=== PATIENT | female | born 1935 | race African-American/Black ===

== ENCOUNTER 2017-03-23 04:11 | Inpatient (IN) | payer OTHER, MEDICAID ==
[~2017-03-23] VITALS: Ht 165.1 cm; Wt 102.6 kg
[2017-03-23] MEDS ORDERED: LEVO25TA55 PO (04:59)
[2017-03-23] MEDS ORDERED: DONE10TA61 PO (04:59)
[2017-03-23] MEDS ORDERED: POLY119P4 PO (04:59)
[2017-03-23] MEDS ORDERED: LISI1TAB5 PO (04:59)
[2017-03-23] MEDS ORDERED: ASPI325T8 PO (04:59)
[2017-03-23] MEDS ORDERED: ACET325T9 PO (04:59)
[2017-03-23] MEDS ORDERED: INSU200I SQ (04:59)
[2017-03-23] MEDS ORDERED: METO50TA10 PO (04:59)
[2017-03-23] MEDS ORDERED: INSU100I27 SQ (04:59)
[2017-03-23] MEDS ORDERED: CIPR250T30 PO (04:59)
[2017-03-23] MEDS ORDERED: LEVO200T PO (04:59)
[2017-03-23] MEDS ORDERED: GABA-585 PO (04:59)
[2017-03-23] MEDS ORDERED: ATOR40TA PO (04:59)
[2017-03-23] MEDS ORDERED: DOCU-109 PO (04:59)
[2017-03-23 07:02] VITALS: BP 151/84
[2017-03-23] MEDS ORDERED: LEVOTHYROXINE 25 MCG TABLET. PO SCH (07:30)
[2017-03-23 08:08] LABS: BASO # 0.1 x10^3/uL (0.0-0.2); BASO % 1 % (0-3); EOS # 0.1 x10^3/uL (0.0-0.7); EOS % 2 % (0-3); HEMATOCRIT 33.1 % (36.0-47.0); HEMOGLOBIN 10.7 g/dL (12.0-15.5); LYMPH # 2.4 x10^3/uL (1.0-4.8); LYMPH % 28 % (24-48); MEAN CORPUSCULAR HEMOGLOBIN 31 pg (25-35); MEAN CORPUSCULAR HGB CONC 32 g/dL (31-37); MEAN CORPUSCULAR VOLUME 96 fL (79-100); MONO # 0.9 x10^3/uL (0.0-1.1); MONO % 10 % (0-9); NEUT # 5.1 x10^3uL (1.8-7.7); NEUT % 59 % (31-73); PLATELET COUNT 256 x10^3/uL (140-400); RED BLOOD COUNT 3.47 x10^6/uL (3.50-5.40); RED CELL DISTRIBUTION WIDTH 14.7 % (11.5-14.5); WHITE BLOOD COUNT 8.6 x10^3/uL (4.0-11.0)
[2017-03-23 08:09] LABS: ALBUMIN 2.8 g/dL (3.4-5.0); ALBUMIN/GLOBULIN RATIO 0.6 (1.0-1.7); CALCIUM 8.8 mg/dL (8.5-10.1); CREATININE 1.4 mg/dL (0.6-1.0); GFR 43.6; MAGNESIUM 1.8 mg/dL (1.8-2.4); TOTAL BILIRUBIN 0.2 mg/dL (0.2-1.0); TOTAL PROTEIN 7.7 g/dL (6.4-8.2)
[2017-03-23] MEDS: GABAPENTIN 100 MG CAPSULE. PO SCH ×2 (08:48→20:00)
[2017-03-23] MEDS: POLYETHYLENE GLYCOL 3350 17 GM PACKET. PO SCH (08:48)
[2017-03-23] MEDS: hydroCHLOROthiazide 12.5 MG CAPSULE PO SCH (08:48)
[2017-03-23] MEDS: LISINOPRIL 20 MG TABLET PO SCH (08:48)
[2017-03-23] MEDS: DOCUSATE SODIUM 100 MG CAPSULE PO SCH ×2 (08:49→20:00)
[2017-03-23] MEDS: METOPROLOL SUCC 24HR ER 50 MG TAB.ER.24H. PO SCH (08:49)
[2017-03-23] MEDS: ASPIRIN 325 MG TABLET PO SCH (08:52)
[2017-03-23] MEDS: CIPROFLOXACIN HCL 250 MG TABLET PO SCH ×2 (08:52→20:00)
[2017-03-23] MEDS: INSULIN DETEMIR 300 UNITS/3 ML INSULN.PEN. SQ SCH ×2 (08:53→20:06)
[2017-03-23] MEDS: LEVOTHYROXINE 100 MCG TABLET PO SCH (08:55)
[2017-03-23] MEDS ORDERED: ENOXAPARIN 30 MG/0.3 ML DISP.SYRIN. SQ SCH (09:00)
--- NOTE | 2017-03-23 10:11 | PDOC ---
Exam Claudio Demential Exam: Claudio Note: Please also refer to the separate dictated note~for this date of service dictated separately.~Patient seen individually. Discussed the patient with Nursing staff reviewed the chart.~Reviewed interim history and current functioning. Reviewed vital signs,~Labs/ Radiology~and current medications noted below. Continue current treatment with the changes noted in the dictated addendum note Assessment: Vital Signs: Vital Signs Date Time Temp Pulse Resp B/P (MAP) Pulse Ox O2 Delivery O2 Flow Rate FiO2 03/23/17 08:49 81 151/84 03/23/17 07:02 98.1 18 98 Labs: Laboratory Tests Test 03/23/17 07:12 03/23/17 07:18 03/23/17 07:41 White Blood Count 8.6 x10^3/uL (4.0-11.0) Red Blood Count 3.47 x10^6/uL (3.50-5.40) L Hemoglobin 10.7 g/dL (12.0-15.5) L Hematocrit 33.1 % (36.0-47.0) L Mean Corpuscular Volume 96 fL (79-100) Mean Corpuscular Hemoglobin 31 pg (25-35) Mean Corpuscular Hemoglobin Concent 32 g/dL (31-37) Red Cell Distribution Width 14.7 % (11.5-14.5) H Platelet Count 256 x10^3/uL (140-400) Neutrophils (%) (Auto) 59 % (31-73) Lymphocytes (%) (Auto) 28 % (24-48) Monocytes (%) (Auto) 10 % (0-9) H Eosinophils (%) (Auto) 2 % (0-3) Basophils (%) (Auto) 1 % (0-3) Neutrophils # (Auto) 5.1 x10^3uL (1.8-7.7) Lymphocytes # (Auto) 2.4 x10^3/uL (1.0-4.8) Monocytes # (Auto) 0.9 x10^3/uL (0.0-1.1) Eosinophils # (Auto) 0.1 x10^3/uL (0.0-0.7) Basophils # (Auto) 0.1 x10^3/uL (0.0-0.2) Sodium Level 139 mmol/L (136-145) Potassium Level 4.0 mmol/L (3.5-5.1) Chloride Level 104 mmol/L (98-107) Carbon Dioxide Level 30 mmol/L (21-32) Anion Gap 5 (6-14) L Blood Urea Nitrogen 26 mg/dL (7-20) H Creatinine 1.4 mg/dL (0.6-1.0) H Estimated GFR (Cockcroft-Gault) 43.6 BUN/Creatinine Ratio 19 (6-20) Glucose Level 157 mg/dL (70-99) H Calcium Level 8.8 mg/dL (8.5-10.1) Magnesium Level 1.8 mg/dL (1.8-2.4) Total Bilirubin 0.2 mg/dL (0.2-1.0) Aspartate Amino Transferase (AST) 29 U/L (15-37) Alanine Aminotransferase (ALT) 25 U/L (14-59) Alkaline Phosphatase 91 U/L (46-116) Total Protein 7.7 g/dL (6.4-8.2) Albumin 2.8 g/dL (3.4-5.0) L Albumin/Globulin Ratio 0.6 (1.0-1.7) L Prothrombin Time 11.3 SEC (9.4-11.4) Prothrombin Time INR 1.1 (0.9-1.1) Glucose (Fingerstick) 173 mg/dL (70-99) H Current Medications: Meds: Current Medications Donepezil HCl (Aricept) 10 mg QHS PO ; Start 03/23/17 at 21:00 Olanzapine (ZyPREXA ZYDIS) 2.5 mg PRN Q2HR PRN PO Psychosis; Start 03/23/17 at 06:30 Acetaminophen (Tylenol) 650 mg PRN Q6HRS PRN PO PAIN / TEMP; Start 03/23/17 at 07:00 Aspirin (Isabel Aspirin) 325 mg DAILY PO Last administered on 03/23/17 08:52; Start 03/23/17 at 09:00 Ciprofloxacin (Cipro) 250 mg BID PO Last administered on 03/23/17 08:52; Start 03/23/17 at 09:00; Stop 03/28/17 at 08:59 Docusate Sodium (Colace) 100 mg BID PO Last administered on 03/23/17 08:49; Start 03/23/17 at 09:00 Gabapentin (Neurontin) 100 mg BID PO Last administered on 03/23/17 08:48; Start 03/23/17 at 09:00 Insulin Detemir (Levemir) 30 units BID SQ Last administered on 03/23/17 08:53 ; Start 03/23/17 at 09:00 Levothyroxine Sodium (Synthroid) 25 mcg DAILY07 PO Last administered on 08:49; Start 03/23/17 at 07:30 Metoprolol Succinate (Toprol Xl) 50 mg DAILY PO Last administered on 03/23/17 08:49; Start 03/23/17 at 09:00 Polyethylene Glycol (miraLAX) 17 gm DAILY PO Last administered on 03/23/17 08: 48; Start 03/23/17 at 09:00 Atorvastatin Calcium (Lipitor) 40 mg QHS PO ; Start 03/23/17 at 21:00 Insulin Aspart (NovoLOG) 15 units TIDAC SQ ; Start 03/23/17 at 16:30 Levothyroxine Sodium (Synthroid) 200 mcg DAILY07 PO Last administered on 08:55; Start 03/23/17 at 09:00 Lisinopril (Prinivil) 20 mg DAILY PO Last administered on 03/23/17 08:48; Start 03/23/17 at 09:00 Enoxaparin Sodium (Lovenox) 30 mg Q24H SQ Last administered on 03/23/17 08:52 ; Start 03/23/17 at 09:00; Stop 03/23/17 at 09:31; Status DC Hydrochlorothiazide (Microzide) 12.5 mg DAILY PO Last administered on 08:48; Start 03/23/17 at 09:00 Enoxaparin Sodium (Lovenox) 40 mg Q24H SQ ; Start 03/24/17 at 09:00 Active Scripts Active Reported Tylenol (Acetaminophen) 325 Mg Tablet 650 Mg PO PRN Q6HRS PRN Metoprolol Succinate ( Xl ) (Metoprolol Succinate) 50 Mg Tab.er.24h 50 Mg PO DAILY Synthroid (Levothyroxine Sodium) 25 Mcg Tablet 25 Mcg PO DAILY07 Synthroid (Levothyroxine Sodium) 200 Mcg Tablet 200 Mcg PO DAILY07 Neurontin (Gabapentin) 100 Mg Capsule 100 Mg PO BID Miralax (Polyethylene Glycol 3350) 119 Gm Powder 17 Gm PO DAILY Lisinopril-Hctz 20-12.5 Mg Tab (Lisinopril/Hydrochlorothiazide) 1 Each Tablet 1 Tab PO DAILY Lipitor (Atorvastatin Calcium) 40 Mg Tablet 40 Mg PO DAILY Levemir Flextouch (Insulin Detemir) 100 Unit/1 Ml Insuln.pen 30 Unit SQ BID Humalog Kwikpen (Insulin Lispro) 200 Unit/1 Ml Insuln.pen 15 Unit SQ TIDAC Colace (Docusate Sodium) 100 Mg Capsule 100 Mg PO BID Cipro (Ciprofloxacin Hcl) 250 Mg Tablet 250 Mg PO BID 5 Days Aspirin 325 Mg Tablet 325 Mg PO DAILY Aricept (Donepezil Hcl) 10 Mg Tablet 10 Mg PO QHS Diagnosis: Problems: (1) Anxiety disorder (2) Impulse control disorder (3) Mild cognitive disorder (4) Major depressive disorder, recurrent episode (5) Bipolar 1 disorder, mixed, moderate KLAUDIA ESCAMILLA MD Mar 23, 2017 10:11
[2017-03-23 13:35] LABS: THYROID STIM HORMONE (TSH) 0.166 uIU/mL (0.358-3.740)
[2017-03-23 15:53] VITALS: BP 145/92
--- NOTE | 2017-03-23 16:24 | RAD ---
CT of the head without contrast, 03/23/2017: History: Altered mental status, multiple strokes. There are moderate patchy lucencies in the deep white matter bilaterally compatible with chronic ischemic change. There is moderate cerebral atrophy. The ventricles are mildly dilated on a compensatory basis. There is no shift of the midline structures. There is no evidence of acute intracranial hemorrhage or mass effect. There is a moderate sized calvarial defect in the right occipital region. This is most likely postsurgical. Correlation with the patient's surgical history is suggested. IMPRESSION: 1. Moderate chronic ischemic change in the deep white matter bilaterally. 2. Cerebral atrophy. 3. No acute intracranial abnormality is detected. PQRS Compliance Statement: One or more of the following individualized dose reduction techniques were utilized for this examination: 1. Automated exposure control 2. Adjustment of the mA and/or kV according to patient size 3. Use of iterative reconstruction technique
[2017-03-23] MEDS: INSULIN ASPART 300 UNITS/3 ML INSULN.PEN SQ SCH (17:19)
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
--- NOTE | 2017-03-23 19:48 | PDOC ---
Exam Claudio Demential Exam: Claudio Note: Please also refer to the separate dictated note~for this date of service dictated separately.~Patient seen individually. Discussed the patient with Nursing staff reviewed the chart.~Reviewed interim history and current functioning. Reviewed vital signs,~Labs/ Radiology~and current medications noted below. Continue current treatment with the changes noted in the dictated addendum note Assessment: Vital Signs: Vital Signs Date Time Temp Pulse Resp B/P (MAP) Pulse Ox O2 Delivery O2 Flow Rate FiO2 03/23/17 15:53 97.2 79 22 145/92 (109) 99 Labs: Laboratory Tests Test 03/23/17 07:12 03/23/17 07:18 03/23/17 07:41 03/23/17 13:01 White Blood Count 8.6 x10^3/uL (4.0-11.0) Red Blood Count 3.47 x10^6/uL (3.50-5.40) L Hemoglobin 10.7 g/dL (12.0-15.5) L Hematocrit 33.1 % (36.0-47.0) L Mean Corpuscular Volume 96 fL (79-100) Mean Corpuscular Hemoglobin 31 pg (25-35) Mean Corpuscular Hemoglobin Concent 32 g/dL (31-37) Red Cell Distribution Width 14.7 % (11.5-14.5) H Platelet Count 256 x10^3/uL (140-400) Neutrophils (%) (Auto) 59 % (31-73) Lymphocytes (%) (Auto) 28 % (24-48) Monocytes (%) (Auto) 10 % (0-9) H Eosinophils (%) (Auto) 2 % (0-3) Basophils (%) (Auto) 1 % (0-3) Neutrophils # (Auto) 5.1 x10^3uL (1.8-7.7) Lymphocytes # (Auto) 2.4 x10^3/uL (1.0-4.8) Monocytes # (Auto) 0.9 x10^3/uL (0.0-1.1) Eosinophils # (Auto) 0.1 x10^3/uL (0.0-0.7) Basophils # (Auto) 0.1 x10^3/uL (0.0-0.2) Sodium Level 139 mmol/L (136-145) Potassium Level 4.0 mmol/L (3.5-5.1) Chloride Level 104 mmol/L (98-107) Carbon Dioxide Level 30 mmol/L (21-32) Anion Gap 5 (6-14) L Blood Urea Nitrogen 26 mg/dL (7-20) H Creatinine 1.4 mg/dL (0.6-1.0) H Estimated GFR (Cockcroft-Gault) 43.6 BUN/Creatinine Ratio 19 (6-20) Glucose Level 157 mg/dL (70-99) H Calcium Level 8.8 mg/dL (8.5-10.1) Magnesium Level 1.8 mg/dL (1.8-2.4) Iron Level 58 ug/dL (50-170) Total Iron Binding Capacity 212 ug/dL (250-450) L Iron Saturation 27 % (15-34) Total Bilirubin 0.2 mg/dL (0.2-1.0) Aspartate Amino Transferase (AST) 29 U/L (15-37) Alanine Aminotransferase (ALT) 25 U/L (14-59) Alkaline Phosphatase 91 U/L (46-116) Total Protein 7.7 g/dL (6.4-8.2) Albumin 2.8 g/dL (3.4-5.0) L Albumin/Globulin Ratio 0.6 (1.0-1.7) L Triglycerides Level 57 mg/dL (0-150) Cholesterol Level 127 mg/dL (0-200) LDL Cholesterol, Calculated 68 mg/dL (0-100) VLDL Cholesterol, Calculated 11 mg/dL (0-40) Non-HDL Cholesterol Calculated 79 mg/dL (0-129) HDL Cholesterol 48 mg/dL (40-60) Cholesterol/HDL Ratio 2.0 Vitamin B12 Level 760 pg/mL (247-911) Thyroid Stimulating Hormone (TSH) 0.166 uIU/mL (0.358-3.740) Prothrombin Time 11.3 SEC (9.4-11.4) Prothrombin Time INR 1.1 (0.9-1.1) Glucose (Fingerstick) 173 mg/dL (70-99) H 243 mg/dL (70-99) H Test 03/23/17 16:47 03/23/17 19:05 Glucose (Fingerstick) 257 mg/dL (70-99) H 230 mg/dL (70-99) H Current Medications: Meds: Current Medications Donepezil HCl (Aricept) 10 mg QHS PO ; Start 03/23/17 at 21:00 Olanzapine (ZyPREXA ZYDIS) 2.5 mg PRN Q2HR PRN PO Psychosis; Start 03/23/17 at 06:30 Acetaminophen (Tylenol) 650 mg PRN Q6HRS PRN PO PAIN / TEMP; Start 03/23/17 at 07:00 Aspirin (Isabel Aspirin) 325 mg DAILY PO Last administered on 03/23/17 08:52; Start 03/23/17 at 09:00 Ciprofloxacin (Cipro) 250 mg BID PO Last administered on 03/23/17 08:52; Start 03/23/17 at 09:00; Stop 03/28/17 at 08:59 Docusate Sodium (Colace) 100 mg BID PO Last administered on 03/23/17 08:49; Start 03/23/17 at 09:00 Gabapentin (Neurontin) 100 mg BID PO Last administered on 03/23/17 08:48; Start 03/23/17 at 09:00 Insulin Detemir (Levemir) 30 units BID SQ Last administered on 03/23/17 08:53 ; Start 03/23/17 at 09:00 Levothyroxine Sodium (Synthroid) 25 mcg DAILY07 PO Last administered on 08:49; Start 03/23/17 at 07:30; Stop 03/23/17 at 16:43; Status DC Metoprolol Succinate (Toprol Xl) 50 mg DAILY PO Last administered on 03/23/17 08:49; Start 03/23/17 at 09:00 Polyethylene Glycol (miraLAX) 17 gm DAILY PO Last administered on 03/23/17 08: 48; Start 03/23/17 at 09:00 Atorvastatin Calcium (Lipitor) 40 mg QHS PO ; Start 03/23/17 at 21:00 Insulin Aspart (NovoLOG) 15 units TIDAC SQ Last administered on 03/23/17 17:19 ; Start 03/23/17 at 16:30 Levothyroxine Sodium (Synthroid) 200 mcg DAILY07 PO Last administered on 08:55; Start 03/23/17 at 09:00 Lisinopril (Prinivil) 20 mg DAILY PO Last administered on 03/23/17 08:48; Start 03/23/17 at 09:00 Enoxaparin Sodium (Lovenox) 30 mg Q24H SQ Last administered on 03/23/17 08:52 ; Start 03/23/17 at 09:00; Stop 03/23/17 at 09:31; Status DC Hydrochlorothiazide (Microzide) 12.5 mg DAILY PO Last administered on 08:48; Start 03/23/17 at 09:00 Enoxaparin Sodium (Lovenox) 40 mg Q24H SQ ; Start 03/24/17 at 09:00 Active Scripts Active Reported Tylenol (Acetaminophen) 325 Mg Tablet 650 Mg PO PRN Q6HRS PRN Metoprolol Succinate ( Xl ) (Metoprolol Succinate) 50 Mg Tab.er.24h 50 Mg PO DAILY Synthroid (Levothyroxine Sodium) 25 Mcg Tablet 25 Mcg PO DAILY07 Synthroid (Levothyroxine Sodium) 200 Mcg Tablet 200 Mcg PO DAILY07 Neurontin (Gabapentin) 100 Mg Capsule 100 Mg PO BID Miralax (Polyethylene Glycol 3350) 119 Gm Powder 17 Gm PO DAILY Lisinopril-Hctz 20-12.5 Mg Tab (Lisinopril/Hydrochlorothiazide) 1 Each Tablet 1 Tab PO DAILY Lipitor (Atorvastatin Calcium) 40 Mg Tablet 40 Mg PO DAILY Levemir Flextouch (Insulin Detemir) 100 Unit/1 Ml Insuln.pen 30 Unit SQ BID Humalog Kwikpen (Insulin Lispro) 200 Unit/1 Ml Insuln.pen 15 Unit SQ TIDAC Colace (Docusate Sodium) 100 Mg Capsule 100 Mg PO BID Cipro (Ciprofloxacin Hcl) 250 Mg Tablet 250 Mg PO BID 5 Days Aspirin 325 Mg Tablet 325 Mg PO DAILY Aricept (Donepezil Hcl) 10 Mg Tablet 10 Mg PO QHS Diagnosis: Problems: (1) Anxiety disorder (2) Impulse control disorder (3) Major depressive disorder, recurrent episode (4) Bipolar 1 disorder, mixed, moderate KLAUDIA ESCAMILLA MD Mar 23, 2017 19:48
[2017-03-23] MEDS: ATORVASTATIN CALCIUM 20 MG TABLET PO SCH (20:02)
[2017-03-23] MEDS: DONEPEZIL HCL 10 MG TABLET PO SCH (20:02)
[2017-03-23 20:07] LABS: T3 TOTAL 93 ng/dL (71-180); THYROXINE 9.6 ug/dL (4.5-12.0)
[2017-03-24 01:11] LABS: HEMOGLOBIN A1C 7.4 % (4.8-5.6)
[2017-03-24] MEDS: LEVOTHYROXINE 100 MCG TABLET PO SCH (05:57)
[2017-03-24 06:02] VITALS: BP 156/82
--- NOTE | 2017-03-24 06:37 | ACF ---
Admission Criteria Forms PSYCHIATRIC DISORDERS Clinical Indications for Inpatient Care (Place 'X' for any and all applicable criteria): Ongoing inpatient care may be needed for 1 or more of the following(1)(2)(3)(4)( 6)(7)(8): [ ]I. Danger to self or others not manageable at lower level of care. [ ]II. Grave disability (eg, inability to perform self care necessary at lower level of care) [ ]III. Agitation or inappropriate behavior interfering with care for primary condition (eg, attempting to discontinue lines or drains prematurely, unable to cooperate with respiratory care) [x]IV. Severe disability or disorder indicated by ALL of the following: [x]a) Severe behavioral health disorder-related symptoms or condition indicated by 1 or more of the following: [ ]i) Severe problem with cognition, memory, judgment, or impulse control [x]ii) Severe clinical manifestations (eg, hallucinations, delusions, other acute psychotic symptoms, gissell, extreme agitation or anxiety) [x]b) Patient management at lower level of care is not feasible until acute intervention or modification is initiated. Extended stay beyond goal length of stay for the primary condition may be needed untilALLof the following are present(1)(2)(3)(4)(722)(23): [ ]a) Danger to self or others is absent or manageable at lower level of care [ ]b) Behavior crisis management, including physical or chemical restraints, is required and is not available at a lower level of care. [ ]c) Behavioral symptoms (e.g., agitation, somnolence, inappropriate behavior) are present, and are not manageable at a lower level of care. [ ]d) Patient cannot understand follow-up treatment and crisis plan. [ ]e) Provider and supports are sufficiently available at lower level of care. [ ]f) Patient can participate (e.g., verify absence of plan for harm) and is in needed of monitoring. The original [facility] [employer] content created by [facility] [employer] has been revised. The portions of the content which have been revised are identified through the use of italic text, and [employer] has neither reviewed nor approved the modified material. All other unmodified content is copyright [facility] [employer] [employer]. Please see references footnoted in the original [facility] edition 2015 Admission Criteria Met?: Yes EDGARDO ROWE Mar 24, 2017 06:37
[2017-03-24] MEDS: GABAPENTIN 100 MG CAPSULE. PO SCH ×2 (08:31→19:25)
[2017-03-24] MEDS: ASPIRIN 325 MG TABLET PO SCH (08:31)
[2017-03-24] MEDS: METOPROLOL SUCC 24HR ER 50 MG TAB.ER.24H. PO SCH (08:31)
[2017-03-24] MEDS: hydroCHLOROthiazide 12.5 MG CAPSULE PO SCH (08:31)
[2017-03-24] MEDS: LISINOPRIL 20 MG TABLET PO SCH (08:31)
[2017-03-24] MEDS: CIPROFLOXACIN HCL 250 MG TABLET PO SCH ×2 (08:31→19:25)
[2017-03-24] MEDS: DOCUSATE SODIUM 100 MG CAPSULE PO SCH ×2 (08:31→19:25)
[2017-03-24] MEDS: POLYETHYLENE GLYCOL 3350 17 GM PACKET. PO SCH (08:32)
[2017-03-24] MEDS: ENOXAPARIN 40 MG/0.4 ML DISP.SYRIN. SQ SCH (08:33)
[2017-03-24] MEDS: INSULIN DETEMIR 300 UNITS/3 ML INSULN.PEN. SQ SCH ×2 (08:35→19:32)
[2017-03-24] MEDS: INSULIN ASPART 300 UNITS/3 ML INSULN.PEN SQ SCH ×3 (08:37→16:30)
[2017-03-24 15:35] VITALS: BP 118/92
[2017-03-24] MEDS ORDERED: DEXTROSE ORAL GEL 15 GM TUBE. ONE ×2 (16:35→16:55)
[2017-03-24] MEDS ORDERED: METHYL SALICYLATE/MENTHOL TOPICAL OINTMENT 29GM TUBE. TP PRN (18:30)
[2017-03-24] MEDS: DONEPEZIL HCL 10 MG TABLET PO SCH (19:25)
[2017-03-24] MEDS: ATORVASTATIN CALCIUM 20 MG TABLET PO SCH (19:26)
[2017-03-25] MEDS: LEVOTHYROXINE 100 MCG TABLET PO SCH (05:49)
[2017-03-25 06:33] VITALS: BP 134/85
[2017-03-25] MEDS: ASPIRIN 325 MG TABLET PO SCH (08:19)
[2017-03-25] MEDS: hydroCHLOROthiazide 12.5 MG CAPSULE PO SCH (08:19)
[2017-03-25] MEDS: DOCUSATE SODIUM 100 MG CAPSULE PO SCH ×2 (08:19→20:16)
[2017-03-25] MEDS: GABAPENTIN 100 MG CAPSULE. PO SCH ×2 (08:19→20:16)
[2017-03-25] MEDS: LISINOPRIL 20 MG TABLET PO SCH (08:20)
[2017-03-25] MEDS: POLYETHYLENE GLYCOL 3350 17 GM PACKET. PO SCH (08:20)
[2017-03-25] MEDS: METOPROLOL SUCC 24HR ER 50 MG TAB.ER.24H. PO SCH (08:20)
[2017-03-25] MEDS: CIPROFLOXACIN HCL 250 MG TABLET PO SCH ×2 (08:20→20:16)
[2017-03-25] MEDS: ENOXAPARIN 40 MG/0.4 ML DISP.SYRIN. SQ SCH (08:21)
[2017-03-25] MEDS: INSULIN ASPART 300 UNITS/3 ML INSULN.PEN SQ SCH ×3 (08:22→16:30)
[2017-03-25] MEDS: INSULIN DETEMIR 300 UNITS/3 ML INSULN.PEN. SQ SCH ×2 (08:22→20:20)
[2017-03-25 16:39] VITALS: BP 154/84
--- NOTE | 2017-03-25 19:40 | PDOC ---
Exam Claudio Demential Exam: Claudio Note: Please also refer to the separate dictated note~for this date of service dictated separately.~Patient seen individually. Discussed the patient with Nursing staff reviewed the chart.~Reviewed interim history and current functioning. Reviewed vital signs,~Labs/ Radiology~and current medications noted below. Continue current treatment with the changes noted in the dictated addendum note Assessment: Vital Signs: Vital Signs Date Time Temp Pulse Resp B/P (MAP) Pulse Ox O2 Delivery O2 Flow Rate FiO2 03/25/17 16:39 97.8 74 18 154/84 (107) 98 03/24/17 15:35 Room Air I&O Intake and Output 03/25/17 06:59 Intake Total 480 ml Balance 480 ml Intake Oral 480 ml # Bowel Movements 3 Labs: Laboratory Tests Test 03/25/17 02:31 03/25/17 07:14 03/25/17 11:25 03/25/17 17:05 Glucose (Fingerstick) 146 mg/dL (70-99) H 99 mg/dL (70-99) 217 mg/dL (70-99) H 78 mg/dL (70-99) Test 03/25/17 19:07 Glucose (Fingerstick) 166 mg/dL (70-99) H Current Medications: Meds: Current Medications Donepezil HCl (Aricept) 10 mg QHS PO Last administered on 03/24/17 19:25; Start 03/23/17 at 21:00 Olanzapine (ZyPREXA ZYDIS) 2.5 mg PRN Q2HR PRN PO Psychosis; Start 03/23/17 at 06:30 Acetaminophen (Tylenol) 650 mg PRN Q6HRS PRN PO PAIN / TEMP; Start 03/23/17 at 07:00 Aspirin (Isabel Aspirin) 325 mg DAILY PO Last administered on 03/25/17 08:19; Start 03/23/17 at 09:00 Ciprofloxacin (Cipro) 250 mg BID PO Last administered on 03/25/17 08:20; Start 03/23/17 at 09:00; Stop 03/28/17 at 08:59 Docusate Sodium (Colace) 100 mg BID PO Last administered on 03/25/17 08:19; Start 03/23/17 at 09:00 Gabapentin (Neurontin) 100 mg BID PO Last administered on 03/25/17 08:19; Start 03/23/17 at 09:00 Insulin Detemir (Levemir) 30 units BID SQ Last administered on 03/25/17 08:22 ; Start 03/23/17 at 09:00 Levothyroxine Sodium (Synthroid) 25 mcg DAILY07 PO Last administered on 08:49; Start 03/23/17 at 07:30; Stop 03/23/17 at 16:43; Status DC Metoprolol Succinate (Toprol Xl) 50 mg DAILY PO Last administered on 03/25/17 08:20; Start 03/23/17 at 09:00 Polyethylene Glycol (miraLAX) 17 gm DAILY PO Last administered on 03/25/17 08: 20; Start 03/23/17 at 09:00 Atorvastatin Calcium (Lipitor) 40 mg QHS PO Last administered on 03/24/17 19: 26; Start 03/23/17 at 21:00 Insulin Aspart (NovoLOG) 15 units TIDAC SQ Last administered on 03/25/17 11:43 ; Start 03/23/17 at 16:30 Levothyroxine Sodium (Synthroid) 200 mcg DAILY07 PO Last administered on 05:49; Start 03/23/17 at 09:00 Lisinopril (Prinivil) 20 mg DAILY PO Last administered on 03/25/17 08:20; Start 03/23/17 at 09:00 Enoxaparin Sodium (Lovenox) 30 mg Q24H SQ Last administered on 03/23/17 08:52 ; Start 03/23/17 at 09:00; Stop 03/23/17 at 09:31; Status DC Hydrochlorothiazide (Microzide) 12.5 mg DAILY PO Last administered on 08:19; Start 03/23/17 at 09:00 Enoxaparin Sodium (Lovenox) 40 mg Q24H SQ Last administered on 03/25/17 08:21 ; Start 03/24/17 at 09:00 Glucose (Insta-Glucose) 15 gm STK-MED ONCE .ROUTE Last administered on 16:35; Start 03/24/17 at 16:35; Stop 03/24/17 at 16:36; Status DC Glucose (Insta-Glucose) 15 gm STK-MED ONCE .ROUTE Last administered on t 16:59; Start 03/24/17 at 16:55; Stop 03/24/17 at 16:56; Status DC Multi-Ingredient Ointment (Analgesic [place]) 1 judith PRN QID PRN TP MUSCLE PAIN; Start 03/24/17 at 18:30 Active Scripts Active Reported Tylenol (Acetaminophen) 325 Mg Tablet 650 Mg PO PRN Q6HRS PRN Metoprolol Succinate ( Xl ) (Metoprolol Succinate) 50 Mg Tab.er.24h 50 Mg PO DAILY Synthroid (Levothyroxine Sodium) 25 Mcg Tablet 25 Mcg PO DAILY07 Synthroid (Levothyroxine Sodium) 200 Mcg Tablet 200 Mcg PO DAILY07 Neurontin (Gabapentin) 100 Mg Capsule 100 Mg PO BID Miralax (Polyethylene Glycol 3350) 119 Gm Powder 17 Gm PO DAILY Lisinopril-Hctz 20-12.5 Mg Tab (Lisinopril/Hydrochlorothiazide) 1 Each Tablet 1 Tab PO DAILY Lipitor (Atorvastatin Calcium) 40 Mg Tablet 40 Mg PO DAILY Levemir Flextouch (Insulin Detemir) 100 Unit/1 Ml Insuln.pen 30 Unit SQ BID Humalog Kwikpen (Insulin Lispro) 200 Unit/1 Ml Insuln.pen 15 Unit SQ TIDAC Colace (Docusate Sodium) 100 Mg Capsule 100 Mg PO BID Cipro (Ciprofloxacin Hcl) 250 Mg Tablet 250 Mg PO BID 5 Days Aspirin 325 Mg Tablet 325 Mg PO DAILY Aricept (Donepezil Hcl) 10 Mg Tablet 10 Mg PO QHS Diagnosis: Problems: (1) Anxiety disorder (2) Impulse control disorder (3) Major depressive disorder, recurrent episode (4) Bipolar 1 disorder, mixed, moderate KLAUDIA ESCAMILLA MD Mar 25, 2017 19:40
[2017-03-25] MEDS: DONEPEZIL HCL 10 MG TABLET PO SCH (20:16)
[2017-03-25] MEDS: ATORVASTATIN CALCIUM 20 MG TABLET PO SCH (20:16)
[2017-03-26] MEDS: LEVOTHYROXINE 100 MCG TABLET PO SCH (05:49)
[2017-03-26 05:58] VITALS: BP 128/55
[2017-03-26 08:26] VITALS: BP 150/77
[2017-03-26] MEDS: CIPROFLOXACIN HCL 250 MG TABLET PO SCH ×2 (08:27→20:09)
[2017-03-26] MEDS: METOPROLOL SUCC 24HR ER 50 MG TAB.ER.24H. PO SCH (08:28)
[2017-03-26] MEDS: hydroCHLOROthiazide 12.5 MG CAPSULE PO SCH (08:29)
[2017-03-26] MEDS: GABAPENTIN 100 MG CAPSULE. PO SCH ×2 (08:29→20:09)
[2017-03-26] MEDS: POLYETHYLENE GLYCOL 3350 17 GM PACKET. PO SCH (08:30)
[2017-03-26] MEDS: ASPIRIN 325 MG TABLET PO SCH (08:30)
[2017-03-26] MEDS: LISINOPRIL 20 MG TABLET PO SCH (08:30)
[2017-03-26] MEDS: DOCUSATE SODIUM 100 MG CAPSULE PO SCH ×2 (08:30→20:09)
[2017-03-26] MEDS: ENOXAPARIN 40 MG/0.4 ML DISP.SYRIN. SQ SCH (08:31)
[2017-03-26] MEDS: INSULIN ASPART 300 UNITS/3 ML INSULN.PEN SQ SCH ×3 (08:31→17:25)
[2017-03-26] MEDS: INSULIN DETEMIR 300 UNITS/3 ML INSULN.PEN. SQ SCH ×2 (08:32→20:11)
[2017-03-26] MEDS: ACETAMINOPHEN 325 MG TABLET PO PRN (12:08)
[2017-03-26 15:47] VITALS: BP 109/60
--- NOTE | 2017-03-26 19:49 | PDOC ---
Exam Claudio Demential Exam: Claudio Note: Please also refer to the separate dictated note~for this date of service dictated separately.~Patient seen individually. Discussed the patient with Nursing staff reviewed the chart.~Reviewed interim history and current functioning. Reviewed vital signs,~Labs/ Radiology~and current medications noted below. Continue current treatment with the changes noted in the dictated addendum note Assessment: Vital Signs: Vital Signs Date Time Temp Pulse Resp B/P (MAP) Pulse Ox O2 Delivery O2 Flow Rate FiO2 03/26/17 15:47 97.6 73 20 109/60 (76) 100 03/24/17 15:35 Room Air I&O Intake and Output 03/26/17 07:00 Intake Total 840 ml Balance 840 ml Intake Oral 840 ml # Voids 2 Labs: Laboratory Tests Test 03/26/17 07:15 03/26/17 12:00 03/26/17 16:45 Glucose (Fingerstick) 164 mg/dL (70-99) H 146 mg/dL (70-99) H 94 mg/dL (70-99) Current Medications: Meds: Current Medications Donepezil HCl (Aricept) 10 mg QHS PO Last administered on 03/25/17 20:16; Start 03/23/17 at 21:00 Olanzapine (ZyPREXA ZYDIS) 2.5 mg PRN Q2HR PRN PO Psychosis Last administered on 03/26/17 15:09; Start 03/23/17 at 06:30 Acetaminophen (Tylenol) 650 mg PRN Q6HRS PRN PO PAIN / TEMP Last administered on 03/26/17 12:08; Start 03/23/17 at 07:00 Aspirin (Isabel Aspirin) 325 mg DAILY PO Last administered on 03/26/17 08:30; Start 03/23/17 at 09:00 Ciprofloxacin (Cipro) 250 mg BID PO Last administered on 03/26/17 08:27; Start 03/23/17 at 09:00; Stop 03/28/17 at 08:59 Docusate Sodium (Colace) 100 mg BID PO Last administered on 03/26/17 08:30; Start 03/23/17 at 09:00 Gabapentin (Neurontin) 100 mg BID PO Last administered on 03/26/17 08:29; Start 03/23/17 at 09:00 Insulin Detemir (Levemir) 30 units BID SQ Last administered on 03/26/17 08:32 ; Start 03/23/17 at 09:00 Levothyroxine Sodium (Synthroid) 25 mcg DAILY07 PO Last administered on 08:49; Start 03/23/17 at 07:30; Stop 03/23/17 at 16:43; Status DC Metoprolol Succinate (Toprol Xl) 50 mg DAILY PO Last administered on 03/26/17 08:28; Start 03/23/17 at 09:00 Polyethylene Glycol (miraLAX) 17 gm DAILY PO Last administered on 03/26/17 08: 30; Start 03/23/17 at 09:00 Atorvastatin Calcium (Lipitor) 40 mg QHS PO Last administered on 03/25/17 20: 16; Start 03/23/17 at 21:00 Insulin Aspart (NovoLOG) 15 units TIDAC SQ Last administered on 03/26/17 12:09 ; Start 03/23/17 at 16:30; Stop 03/26/17 at 14:22; Status DC Levothyroxine Sodium (Synthroid) 200 mcg DAILY07 PO Last administered on 05:49; Start 03/23/17 at 09:00 Lisinopril (Prinivil) 20 mg DAILY PO Last administered on 03/26/17 08:30; Start 03/23/17 at 09:00 Enoxaparin Sodium (Lovenox) 30 mg Q24H SQ Last administered on 03/23/17 08:52 ; Start 03/23/17 at 09:00; Stop 03/23/17 at 09:31; Status DC Hydrochlorothiazide (Microzide) 12.5 mg DAILY PO Last administered on 08:29; Start 03/23/17 at 09:00 Enoxaparin Sodium (Lovenox) 40 mg Q24H SQ Last administered on 03/26/17 08:31 ; Start 03/24/17 at 09:00 Glucose (Insta-Glucose) 15 gm STK-MED ONCE .ROUTE Last administered on 16:35; Start 03/24/17 at 16:35; Stop 03/24/17 at 16:36; Status DC Glucose (Insta-Glucose) 15 gm STK-MED ONCE .ROUTE Last administered on 16:59; Start 03/24/17 at 16:55; Stop 03/24/17 at 16:56; Status DC Multi-Ingredient Ointment (Analgesic [place]) 1 judith PRN QID PRN TP MUSCLE PAIN; Start 03/24/17 at 18:30 Insulin Aspart (NovoLOG) 15 units TIDAC SQ Last administered on 03/26/17 17:25 ; Start 03/26/17 at 14:22 Buspirone HCl (Buspar) 5 mg BID92 PO ; Start 03/27/17 at 09:00 Active Scripts Active Reported Tylenol (Acetaminophen) 325 Mg Tablet 650 Mg PO PRN Q6HRS PRN Metoprolol Succinate ( Xl ) (Metoprolol Succinate) 50 Mg Tab.er.24h 50 Mg PO DAILY Synthroid (Levothyroxine Sodium) 25 Mcg Tablet 25 Mcg PO DAILY07 Synthroid (Levothyroxine Sodium) 200 Mcg Tablet 200 Mcg PO DAILY07 Neurontin (Gabapentin) 100 Mg Capsule 100 Mg PO BID Miralax (Polyethylene Glycol 3350) 119 Gm Powder 17 Gm PO DAILY Lisinopril-Hctz 20-12.5 Mg Tab (Lisinopril/Hydrochlorothiazide) 1 Each Tablet 1 Tab PO DAILY Lipitor (Atorvastatin Calcium) 40 Mg Tablet 40 Mg PO DAILY Levemir Flextouch (Insulin Detemir) 100 Unit/1 Ml Insuln.pen 30 Unit SQ BID Humalog Kwikpen (Insulin Lispro) 200 Unit/1 Ml Insuln.pen 15 Unit SQ TIDAC Colace (Docusate Sodium) 100 Mg Capsule 100 Mg PO BID Cipro (Ciprofloxacin Hcl) 250 Mg Tablet 250 Mg PO BID 5 Days Aspirin 325 Mg Tablet 325 Mg PO DAILY Aricept (Donepezil Hcl) 10 Mg Tablet 10 Mg PO QHS Diagnosis: Problems: (1) Anxiety disorder (2) Impulse control disorder (3) Major depressive disorder, recurrent episode (4) Bipolar 1 disorder, mixed, moderate KLAUDIA ESCAMILLA MD Mar 26, 2017 19:48
[2017-03-26] MEDS: DONEPEZIL HCL 10 MG TABLET PO SCH (20:09)
[2017-03-26] MEDS: ATORVASTATIN CALCIUM 20 MG TABLET PO SCH (20:10)
[2017-03-27] MEDS: LEVOTHYROXINE 100 MCG TABLET PO SCH (03:08)
[2017-03-27 07:00] VITALS: BP 129/58
[2017-03-27] MEDS: INSULIN ASPART 300 UNITS/3 ML INSULN.PEN SQ SCH ×3 (07:30→18:13)
--- NOTE | 2017-03-27 08:28 | PN ---
DATE: 03/25/2017 This is a late entry, covers the elements not covered in my initial note of 03/25/2017. I met with the patient evening of 03/25/2017. SUBJECTIVE: The patient has been withdrawn, somewhat drowsy in the day room before bedtime, otherwise calm, compliant, and increased activity during the evening visiting hours. REVIEW OF SYSTEMS: No CV, , pulmonary, eye system symptoms on review. Gait unsteady in wheelchair. MENTAL STATUS EXAM: Oriented to herself and situation. Speech has some latency, coherent. Abstraction fair, computation impaired, language function intact, attention span short, mood and affect somewhat withdrawn. LABORATORY DATA: Reviewed. IMPRESSION: Unchanged from initial note. PLAN: Continue current psychotropics. Reviewed drug interactions, risk/benefit ratio favors no further change. MAN Azar ESCAMILLA MD DR: BILLY/kal JOB#: [id number] / [id number]
[2017-03-27] MEDS: hydroCHLOROthiazide 12.5 MG CAPSULE PO SCH (09:21)
[2017-03-27] MEDS: POLYETHYLENE GLYCOL 3350 17 GM PACKET. PO SCH (09:22)
[2017-03-27] MEDS: METOPROLOL SUCC 24HR ER 50 MG TAB.ER.24H. PO SCH (09:22)
[2017-03-27] MEDS: CIPROFLOXACIN HCL 250 MG TABLET PO SCH ×2 (09:22→20:02)
[2017-03-27] MEDS: ASPIRIN 325 MG TABLET PO SCH (09:22)
[2017-03-27] MEDS: LISINOPRIL 20 MG TABLET PO SCH (09:22)
[2017-03-27] MEDS: DOCUSATE SODIUM 100 MG CAPSULE PO SCH ×2 (09:22→20:02)
[2017-03-27] MEDS: GABAPENTIN 100 MG CAPSULE. PO SCH ×2 (09:26→20:02)
[2017-03-27] MEDS: busPIRone 5 MG TABLET. PO SCH ×2 (09:26→13:03)
[2017-03-27] MEDS: ENOXAPARIN 40 MG/0.4 ML DISP.SYRIN. SQ SCH (09:26)
[2017-03-27] MEDS: INSULIN DETEMIR 300 UNITS/3 ML INSULN.PEN. SQ SCH ×2 (09:30→20:16)
[2017-03-27 10:20] LABS: BILIRUBIN,URINE NEG (NEG); CLARITY,URINE TURBID; COLOR,URINE STRAW; GLUCOSE,URINE NEG (NEG); NITRITE,URINE POS (NEG); UROBILINOGEN,URINE 0.2 mg/dL (0.2 mg/dL)
[2017-03-27 10:21] LABS: BACTERIA,URINE MANY /HPF (0-FEW); SQUAMOUS EPITHELIAL CELL,UR MOD /LPF; WBC,URINE >40 /HPF (0-4)
[2017-03-27] MEDS: ACETAMINOPHEN 325 MG TABLET PO PRN (13:03)
[2017-03-27 15:51] VITALS: BP 125/73
--- NOTE | 2017-03-27 19:48 | PDOC ---
Exam Claudio Demential Exam: Claudio Note: Please also refer to the separate dictated note~for this date of service dictated separately.~Patient seen individually. Discussed the patient with Nursing staff reviewed the chart.~Reviewed interim history and current functioning. Reviewed vital signs,~Labs/ Radiology~and current medications noted below. Continue current treatment with the changes noted in the dictated addendum note Assessment: Vital Signs: Vital Signs Date Time Temp Pulse Resp B/P (MAP) Pulse Ox O2 Delivery O2 Flow Rate FiO2 03/27/17 15:51 97.0 79 20 125/73 (90) 100 03/24/17 15:35 Room Air I&O Intake and Output 03/28/17 07:00 Intake Total 840 ml Balance 840 ml Intake Oral 840 ml Labs: Laboratory Tests Test 03/27/17 07:49 03/27/17 10:00 03/27/17 11:20 03/27/17 16:23 Glucose (Fingerstick) 60 mg/dL (70-99) L 132 mg/dL (70-99) H 219 mg/dL (70-99) H Urine Collection Type Unknown Urine Color Straw Urine Clarity Turbid Urine pH 6.0 Urine Specific [place] 1.015 Urine Protein Neg (NEG-TRACE) Urine Glucose (UA) Neg mg/dL (NEG) Urine Ketones (Stick) Neg mg/dL (NEG) Urine Blood Trace (NEG) Urine Nitrite Pos (NEG) Urine Bilirubin Neg (NEG) Urine Urobilinogen Dipstick 0.2 mg/dL (0.2 mg/dL) Urine Leukocyte Esterase Large (NEG) Urine RBC 3-5 /HPF (0-2) Urine WBC >40 /HPF (0-4) Urine Squamous Epithelial Cells Mod /LPF Urine Bacteria Many /HPF (0-FEW) Test 03/27/17 19:15 Glucose (Fingerstick) 178 mg/dL (70-99) H Current Medications: Meds: Current Medications Donepezil HCl (Aricept) 10 mg QHS PO Last administered on 03/26/17 20:09; Start 03/23/17 at 21:00 Olanzapine (ZyPREXA ZYDIS) 2.5 mg PRN Q2HR PRN PO Psychosis Last administered on 03/26/17 15:09; Start 03/23/17 at 06:30 Acetaminophen (Tylenol) 650 mg PRN Q6HRS PRN PO PAIN / TEMP Last administered on 03/27/17 13:03; Start 03/23/17 at 07:00 Aspirin (Isabel Aspirin) 325 mg DAILY PO Last administered on 03/27/17 09:22; Start 03/23/17 at 09:00 Ciprofloxacin (Cipro) 250 mg BID PO Last administered on 03/27/17 09:22; Start 03/23/17 at 09:00; Stop 03/28/17 at 08:59 Docusate Sodium (Colace) 100 mg BID PO Last administered on 03/27/17 09:22; Start 03/23/17 at 09:00 Gabapentin (Neurontin) 100 mg BID PO Last administered on 03/27/17 09:26; Start 03/23/17 at 09:00 Insulin Detemir (Levemir) 30 units BID SQ Last administered on 03/27/17 09:30 ; Start 03/23/17 at 09:00 Levothyroxine Sodium (Synthroid) 25 mcg DAILY07 PO Last administered on 08:49; Start 03/23/17 at 07:30; Stop 03/23/17 at 16:43; Status DC Metoprolol Succinate (Toprol Xl) 50 mg DAILY PO Last administered on 03/27/17 09:22; Start 03/23/17 at 09:00 Polyethylene Glycol (miraLAX) 17 gm DAILY PO Last administered on 03/27/17 09: 22; Start 03/23/17 at 09:00 Atorvastatin Calcium (Lipitor) 40 mg QHS PO Last administered on 03/26/17 20: 10; Start 03/23/17 at 21:00 Insulin Aspart (NovoLOG) 15 units TIDAC SQ Last administered on 03/26/17 12:09 ; Start 03/23/17 at 16:30; Stop 03/26/17 at 14:22; Status DC Levothyroxine Sodium (Synthroid) 200 mcg DAILY07 PO Last administered on 03:08; Start 03/23/17 at 09:00 Lisinopril (Prinivil) 20 mg DAILY PO Last administered on 03/27/17 09:22; Start 03/23/17 at 09:00 Enoxaparin Sodium (Lovenox) 30 mg Q24H SQ Last administered on 03/23/17 08:52 ; Start 03/23/17 at 09:00; Stop 03/23/17 at 09:31; Status DC Hydrochlorothiazide (Microzide) 12.5 mg DAILY PO Last administered on 09:21; Start 03/23/17 at 09:00 Enoxaparin Sodium (Lovenox) 40 mg Q24H SQ Last administered on 03/27/17 09:26 ; Start 03/24/17 at 09:00 Glucose (Insta-Glucose) 15 gm STK-MED ONCE .ROUTE Last administered on 16:35; Start 03/24/17 at 16:35; Stop 03/24/17 at 16:36; Status DC Glucose (Insta-Glucose) 15 gm STK-MED ONCE .ROUTE Last administered on 16:59; Start 03/24/17 at 16:55; Stop 03/24/17 at 16:56; Status DC Multi-Ingredient Ointment (Analgesic [place]) 1 judith PRN QID PRN TP MUSCLE PAIN; Start 03/24/17 at 18:30 Insulin Aspart (NovoLOG) 15 units TIDAC SQ Last administered on 03/27/17 18:13 ; Start 03/26/17 at 14:22 Buspirone HCl (Buspar) 5 mg BID92 PO Last administered on 03/27/17 13:03; Start 03/27/17 at 09:00 Active Scripts Active Reported Tylenol (Acetaminophen) 325 Mg Tablet 650 Mg PO PRN Q6HRS PRN Metoprolol Succinate ( Xl ) (Metoprolol Succinate) 50 Mg Tab.er.24h 50 Mg PO DAILY Synthroid (Levothyroxine Sodium) 25 Mcg Tablet 25 Mcg PO DAILY07 Synthroid (Levothyroxine Sodium) 200 Mcg Tablet 200 Mcg PO DAILY07 Neurontin (Gabapentin) 100 Mg Capsule 100 Mg PO BID Miralax (Polyethylene Glycol 3350) 119 Gm Powder 17 Gm PO DAILY Lisinopril-Hctz 20-12.5 Mg Tab (Lisinopril/Hydrochlorothiazide) 1 Each Tablet 1 Tab PO DAILY Lipitor (Atorvastatin Calcium) 40 Mg Tablet 40 Mg PO DAILY Levemir Flextouch (Insulin Detemir) 100 Unit/1 Ml Insuln.pen 30 Unit SQ BID Humalog Kwikpen (Insulin Lispro) 200 Unit/1 Ml Insuln.pen 15 Unit SQ TIDAC Colace (Docusate Sodium) 100 Mg Capsule 100 Mg PO BID Cipro (Ciprofloxacin Hcl) 250 Mg Tablet 250 Mg PO BID 5 Days Aspirin 325 Mg Tablet 325 Mg PO DAILY Aricept (Donepezil Hcl) 10 Mg Tablet 10 Mg PO QHS Diagnosis: Problems: (1) Anxiety disorder (2) Impulse control disorder (3) Major depressive disorder, recurrent episode (4) Bipolar 1 disorder, mixed, moderate KLAUDIA ESCAMILLA MD Mar 27, 2017 19:48
[2017-03-27] MEDS: DONEPEZIL HCL 10 MG TABLET PO SCH (20:02)
[2017-03-27] MEDS: ATORVASTATIN CALCIUM 20 MG TABLET PO SCH (20:02)
--- NOTE | 2017-03-28 01:50 | PN ---
DATE: 03/26/2017 PSYCHIATRIC PROGRESS NOTE This is a late entry of 03/26/2017 covers elements not covered in my initial note. SUBJECTIVE: I met with the patient in the evening of 03/26/2017. Staff are trying to check her UA, but she is incontinent in a brief which makes it hard has been started on clindamycin somewhat dramatic previous evening, she was yelling that her leg was broken, remains anxious. REVIEW OF SYSTEMS: Ambulation impaired in wheelchair. No CV, , pulmonary, eye system symptoms on review. MENTAL STATUS EXAM: Oriented to herself and situation. Speech coherent, somewhat sedated as I met with her the evening of 03/26/2017, but that was after her p.r.n. Zyprexa. Abstraction fair, computation impaired, language function intact. No sexually inappropriate behaviors noted. Mood and affect, lability improved. LABORATORY DATA: Reviewed. IMPRESSION: Unchanged from initial note. PLAN: Continue current psychotropics. Add BuSpar 5 mg twice a day. Adjust further as clinically indicated. MAN Azar ESCAMILLA MD DR: BILLY/kal JOB#: [id number] / [id number]
[2017-03-28 05:55] VITALS: BP 137/77
[2017-03-28] MEDS: INSULIN ASPART 300 UNITS/3 ML INSULN.PEN SQ SCH ×3 (07:30→17:19)
[2017-03-28] MEDS: busPIRone 5 MG TABLET. PO SCH ×4 (09:32→19:40)
[2017-03-28] MEDS: hydroCHLOROthiazide 12.5 MG CAPSULE PO SCH (09:32)
[2017-03-28] MEDS: ASPIRIN 325 MG TABLET PO SCH (09:32)
[2017-03-28] MEDS: METOPROLOL SUCC 24HR ER 50 MG TAB.ER.24H. PO SCH (09:32)
[2017-03-28] MEDS: DOCUSATE SODIUM 100 MG CAPSULE PO SCH ×2 (09:32→19:40)
[2017-03-28] MEDS: GABAPENTIN 100 MG CAPSULE. PO SCH ×2 (09:33→19:40)
[2017-03-28] MEDS: LISINOPRIL 20 MG TABLET PO SCH (09:33)
[2017-03-28] MEDS: POLYETHYLENE GLYCOL 3350 17 GM PACKET. PO SCH (09:38)
[2017-03-28] MEDS: ENOXAPARIN 40 MG/0.4 ML DISP.SYRIN. SQ SCH (09:38)
[2017-03-28] MEDS: LEVOTHYROXINE 100 MCG TABLET PO SCH (09:38)
[2017-03-28] MEDS: INSULIN DETEMIR 300 UNITS/3 ML INSULN.PEN. SQ SCH ×2 (09:46→19:42)
[2017-03-28] MEDS: ACETAMINOPHEN 325 MG TABLET PO PRN (11:48)
[2017-03-28 16:14] VITALS: BP 138/73
[2017-03-28] MEDS: DONEPEZIL HCL 10 MG TABLET PO SCH (19:40)
[2017-03-28] MEDS: ATORVASTATIN CALCIUM 20 MG TABLET PO SCH (19:40)
--- NOTE | 2017-03-28 19:56 | PDOC ---
Exam Claudio Demential Exam: Claudio Note: Please also refer to the separate dictated note~for this date of service dictated separately.~Patient seen individually. Discussed the patient with Nursing staff reviewed the chart.~Reviewed interim history and current functioning. Reviewed vital signs,~Labs/ Radiology~and current medications noted below. Continue current treatment with the changes noted in the dictated addendum note Assessment: Vital Signs: Vital Signs Date Time Temp Pulse Resp B/P (MAP) Pulse Ox O2 Delivery O2 Flow Rate FiO2 03/28/17 16:14 97.2 76 16 138/73 (94) 95 03/24/17 15:35 Room Air I&O Intake and Output 03/29/17 07:00 Intake Total 960 ml Balance 960 ml Intake Oral 960 ml Labs: Laboratory Tests Test 03/28/17 07:22 03/28/17 11:40 03/28/17 17:16 03/28/17 19:08 Glucose (Fingerstick) 72 mg/dL (70-99) 165 mg/dL (70-99) H 161 mg/dL (70-99) H 210 mg/dL (70-99) H Current Medications: Meds: Current Medications Donepezil HCl (Aricept) 10 mg QHS PO Last administered on 03/28/17 19:40; Start 03/23/17 at 21:00 Olanzapine (ZyPREXA ZYDIS) 2.5 mg PRN Q2HR PRN PO Psychosis Last administered on 03/26/17 15:09; Start 03/23/17 at 06:30 Acetaminophen (Tylenol) 650 mg PRN Q6HRS PRN PO PAIN / TEMP Last administered on 03/28/17 11:48; Start 03/23/17 at 07:00 Aspirin (Isabel Aspirin) 325 mg DAILY PO Last administered on 03/28/17 09:32; Start 03/23/17 at 09:00 Ciprofloxacin (Cipro) 250 mg BID PO Last administered on 03/27/17 20:02; Start 03/23/17 at 09:00; Stop 03/28/17 at 08:59; Status DC Docusate Sodium (Colace) 100 mg BID PO Last administered on 03/28/17 19:40; Start 03/23/17 at 09:00 Gabapentin (Neurontin) 100 mg BID PO Last administered on 03/28/17 19:40; Start 03/23/17 at 09:00 Insulin Detemir (Levemir) 30 units BID SQ Last administered on 03/28/17 19:42 ; Start 03/23/17 at 09:00 Levothyroxine Sodium (Synthroid) 25 mcg DAILY07 PO Last administered on 08:49; Start 03/23/17 at 07:30; Stop 03/23/17 at 16:43; Status DC Metoprolol Succinate (Toprol Xl) 50 mg DAILY PO Last administered on 03/28/17 09:32; Start 03/23/17 at 09:00 Polyethylene Glycol (miraLAX) 17 gm DAILY PO Last administered on 03/28/17 09: 38; Start 03/23/17 at 09:00 Atorvastatin Calcium (Lipitor) 40 mg QHS PO Last administered on 03/28/17 19: 40; Start 03/23/17 at 21:00 Insulin Aspart (NovoLOG) 15 units TIDAC SQ Last administered on 03/26/17 12:09 ; Start 03/23/17 at 16:30; Stop 03/26/17 at 14:22; Status DC Levothyroxine Sodium (Synthroid) 200 mcg DAILY07 PO Last administered on 09:38; Start 03/23/17 at 09:00 Lisinopril (Prinivil) 20 mg DAILY PO Last administered on 03/28/17 09:33; Start 03/23/17 at 09:00 Enoxaparin Sodium (Lovenox) 30 mg Q24H SQ Last administered on 03/23/17 08:52 ; Start 03/23/17 at 09:00; Stop 03/23/17 at 09:31; Status DC Hydrochlorothiazide (Microzide) 12.5 mg DAILY PO Last administered on 09:32; Start 03/23/17 at 09:00 Enoxaparin Sodium (Lovenox) 40 mg Q24H SQ Last administered on 03/28/17 09:38 ; Start 03/24/17 at 09:00 Glucose (Insta-Glucose) 15 gm STK-MED ONCE .ROUTE Last administered on 16:35; Start 03/24/17 at 16:35; Stop 03/24/17 at 16:36; Status DC Glucose (Insta-Glucose) 15 gm STK-MED ONCE .ROUTE Last administered on 16:59; Start 03/24/17 at 16:55; Stop 03/24/17 at 16:56; Status DC Multi-Ingredient Ointment (Analgesic [place]) 1 judith PRN QID PRN TP MUSCLE PAIN; Start 03/24/17 at 18:30 Insulin Aspart (NovoLOG) 15 units TIDAC SQ Last administered on 03/28/17 17:19 ; Start 03/26/17 at 14:22 Buspirone HCl (Buspar) 5 mg BID92 PO Last administered on 03/28/17 09:32; Start 03/27/17 at 09:00; Stop 03/28/17 at 13:11; Status DC Buspirone HCl (Buspar) 5 mg TID PO Last administered on 03/28/17 19:40; Start 03/28/17 at 14:00 Sertraline HCl (Zoloft) 25 mg DAILY PO ; Start 03/29/17 at 09:00 Active Scripts Active Reported Tylenol (Acetaminophen) 325 Mg Tablet 650 Mg PO PRN Q6HRS PRN Metoprolol Succinate ( Xl ) (Metoprolol Succinate) 50 Mg Tab.er.24h 50 Mg PO DAILY Synthroid (Levothyroxine Sodium) 25 Mcg Tablet 25 Mcg PO DAILY07 Synthroid (Levothyroxine Sodium) 200 Mcg Tablet 200 Mcg PO DAILY07 Neurontin (Gabapentin) 100 Mg Capsule 100 Mg PO BID Miralax (Polyethylene Glycol 3350) 119 Gm Powder 17 Gm PO DAILY Lisinopril-Hctz 20-12.5 Mg Tab (Lisinopril/Hydrochlorothiazide) 1 Each Tablet 1 Tab PO DAILY Lipitor (Atorvastatin Calcium) 40 Mg Tablet 40 Mg PO DAILY Levemir Flextouch (Insulin Detemir) 100 Unit/1 Ml Insuln.pen 30 Unit SQ BID Humalog Kwikpen (Insulin Lispro) 200 Unit/1 Ml Insuln.pen 15 Unit SQ TIDAC Colace (Docusate Sodium) 100 Mg Capsule 100 Mg PO BID Cipro (Ciprofloxacin Hcl) 250 Mg Tablet 250 Mg PO BID 5 Days Aspirin 325 Mg Tablet 325 Mg PO DAILY Aricept (Donepezil Hcl) 10 Mg Tablet 10 Mg PO QHS Diagnosis: Problems: (1) Anxiety disorder (2) Impulse control disorder (3) Major depressive disorder, recurrent episode (4) Bipolar 1 disorder, mixed, moderate KLAUDIA ESCAMILLA MD Mar 28, 2017 19:56
--- NOTE | 2017-03-29 00:39 | PN ---
DATE: 03/27/2017 This late entry 03/27/2017 covers elements not covered in my initial note on 03/27/2017. SUBJECTIVE: I met with the patient the evening of 03/27/2017. Discussed with social service staff earlier in the day on 03/27/2017 as well. The patient is compliant with her medications, pleasant, complains of leg pain. REVIEW OF SYSTEMS: Ambulation impaired, in a wheelchair. No CV, , pulmonary, eye system symptoms on review. MENTAL STATUS EXAM: Oriented to herself and situation. Speech is coherent, abstraction fair, computation impaired, language function intact, attention span short. Mood and affect, lability is improved. LABS: UA has been checked again with the possibility of UTI. PLAN: Continue Aricept 10 mg a day, BuSpar 5 mg b.i.d. will be increased to t.i.d. Check UA Continue Zyprexa p.r.n. Add Zoloft 25 mg a day. Reviewed drug interactions, risk/benefit ratio favors no further changes as of now. MAN Azar ESCAMILLA MD DR: BILLY/kal JOB#: [id number] / [id number]
[2017-03-29 06:09] VITALS: BP 132/71
[2017-03-29] MEDS: LEVOTHYROXINE 100 MCG TABLET PO SCH (06:13)
[2017-03-29] MEDS: INSULIN ASPART 300 UNITS/3 ML INSULN.PEN SQ SCH ×3 (07:30→18:15)
[2017-03-29] MEDS: DOCUSATE SODIUM 100 MG CAPSULE PO SCH ×2 (09:47→19:50)
[2017-03-29] MEDS: hydroCHLOROthiazide 12.5 MG CAPSULE PO SCH (09:47)
[2017-03-29] MEDS: GABAPENTIN 100 MG CAPSULE. PO SCH ×2 (09:47→19:50)
[2017-03-29] MEDS: busPIRone 5 MG TABLET. PO SCH ×3 (09:47→19:50)
[2017-03-29] MEDS: LISINOPRIL 20 MG TABLET PO SCH (09:47)
[2017-03-29] MEDS: ASPIRIN 325 MG TABLET PO SCH (09:48)
[2017-03-29] MEDS: METOPROLOL SUCC 24HR ER 50 MG TAB.ER.24H. PO SCH (09:48)
[2017-03-29] MEDS: ENOXAPARIN 40 MG/0.4 ML DISP.SYRIN. SQ SCH (09:48)
[2017-03-29] MEDS: POLYETHYLENE GLYCOL 3350 17 GM PACKET. PO SCH (09:48)
[2017-03-29] MEDS: SERTRALINE 25 MG TABLET. PO SCH (09:49)
[2017-03-29] MEDS: INSULIN DETEMIR 300 UNITS/3 ML INSULN.PEN. SQ SCH ×2 (09:50→19:51)
[2017-03-29 16:14] VITALS: BP 159/79
[2017-03-29] MEDS: DONEPEZIL HCL 10 MG TABLET PO SCH (19:50)
[2017-03-29] MEDS: ATORVASTATIN CALCIUM 20 MG TABLET PO SCH (19:50)
[2017-03-29] MEDS: SMZ/TMP 800/160MG TABLET. PO SCH (19:52)
--- NOTE | 2017-03-29 19:55 | PDOC ---
Exam Claudio Demential Exam: Claudio Note: Please also refer to the separate dictated note~for this date of service dictated separately.~Patient seen individually. Discussed the patient with Nursing staff reviewed the chart.~Reviewed interim history and current functioning. Reviewed vital signs,~Labs/ Radiology~and current medications noted below. Continue current treatment with the changes noted in the dictated addendum note Assessment: Vital Signs: Vital Signs Date Time Temp Pulse Resp B/P (MAP) Pulse Ox O2 Delivery O2 Flow Rate FiO2 03/29/17 16:14 97.1 84 18 159/79 (105) 97 03/24/17 15:35 Room Air I&O Intake and Output 03/30/17 06:59 Intake Total 720 ml Balance 720 ml Intake Oral 720 ml # Bowel Movements 2 Labs: Laboratory Tests Test 03/29/17 07:28 03/29/17 11:30 03/29/17 16:18 03/29/17 19:18 Glucose (Fingerstick) 78 mg/dL (70-99) 206 mg/dL (70-99) H 159 mg/dL (70-99) H 184 mg/dL (70-99) H Current Medications: Meds: Current Medications Donepezil HCl (Aricept) 10 mg QHS PO Last administered on 03/29/17 19:50; Start 03/23/17 at 21:00 Olanzapine (ZyPREXA ZYDIS) 2.5 mg PRN Q2HR PRN PO Psychosis Last administered on 03/26/17 15:09; Start 03/23/17 at 06:30 Acetaminophen (Tylenol) 650 mg PRN Q6HRS PRN PO PAIN / TEMP Last administered on 03/28/17 11:48; Start 03/23/17 at 07:00 Aspirin (Isabel Aspirin) 325 mg DAILY PO Last administered on 03/29/17 09:48; Start 03/23/17 at 09:00 Ciprofloxacin (Cipro) 250 mg BID PO Last administered on 03/27/17 20:02; Start 03/23/17 at 09:00; Stop 03/28/17 at 08:59; Status DC Docusate Sodium (Colace) 100 mg BID PO Last administered on 03/29/17 19:50; Start 03/23/17 at 09:00 Gabapentin (Neurontin) 100 mg BID PO Last administered on 03/29/17 19:50; Start 03/23/17 at 09:00 Insulin Detemir (Levemir) 30 units BID SQ Last administered on 03/29/17 19:51 ; Start 03/23/17 at 09:00 Levothyroxine Sodium (Synthroid) 25 mcg DAILY07 PO Last administered on 08:49; Start 03/23/17 at 07:30; Stop 03/23/17 at 16:43; Status DC Metoprolol Succinate (Toprol Xl) 50 mg DAILY PO Last administered on 03/29/17 09:48; Start 03/23/17 at 09:00 Polyethylene Glycol (miraLAX) 17 gm DAILY PO Last administered on 03/29/17 09: 48; Start 03/23/17 at 09:00 Atorvastatin Calcium (Lipitor) 40 mg QHS PO Last administered on 03/29/17 19: 50; Start 03/23/17 at 21:00 Insulin Aspart (NovoLOG) 15 units TIDAC SQ Last administered on 03/26/17 12:09 ; Start 03/23/17 at 16:30; Stop 03/26/17 at 14:22; Status DC Levothyroxine Sodium (Synthroid) 200 mcg DAILY07 PO Last administered on 06:13; Start 03/23/17 at 09:00 Lisinopril (Prinivil) 20 mg DAILY PO Last administered on 03/29/17 09:47; Start 03/23/17 at 09:00 Enoxaparin Sodium (Lovenox) 30 mg Q24H SQ Last administered on 03/23/17 08:52 ; Start 03/23/17 at 09:00; Stop 03/23/17 at 09:31; Status DC Hydrochlorothiazide (Microzide) 12.5 mg DAILY PO Last administered on 09:47; Start 03/23/17 at 09:00 Enoxaparin Sodium (Lovenox) 40 mg Q24H SQ Last administered on 03/29/17 09:48 ; Start 03/24/17 at 09:00 Glucose (Insta-Glucose) 15 gm STK-MED ONCE .ROUTE Last administered on 16:35; Start 03/24/17 at 16:35; Stop 03/24/17 at 16:36; Status DC Glucose (Insta-Glucose) 15 gm STK-MED ONCE .ROUTE Last administered on 16:59; Start 03/24/17 at 16:55; Stop 03/24/17 at 16:56; Status DC Multi-Ingredient Ointment (Analgesic [place]) 1 judith PRN QID PRN TP MUSCLE PAIN; Start 03/24/17 at 18:30 Insulin Aspart (NovoLOG) 15 units TIDAC SQ Last administered on 03/29/17 18:15 ; Start 03/26/17 at 14:22 Buspirone HCl (Buspar) 5 mg BID92 PO Last administered on 03/28/17 09:32; Start 03/27/17 at 09:00; Stop 03/28/17 at 13:11; Status DC Buspirone HCl (Buspar) 5 mg TID PO Last administered on 03/29/17 19:50; Start 03/28/17 at 14:00 Sertraline HCl (Zoloft) 25 mg DAILY PO Last administered on 03/29/17 09:49; Start 03/29/17 at 09:00 Trimethoprim/ Sulfamethoxazole (Bactrim Ds) 1 tab BID PO Last administered on 19:52; Start 03/29/17 at 21:00 Active Scripts Active Reported Tylenol (Acetaminophen) 325 Mg Tablet 650 Mg PO PRN Q6HRS PRN Metoprolol Succinate ( Xl ) (Metoprolol Succinate) 50 Mg Tab.er.24h 50 Mg PO DAILY Synthroid (Levothyroxine Sodium) 25 Mcg Tablet 25 Mcg PO DAILY07 Synthroid (Levothyroxine Sodium) 200 Mcg Tablet 200 Mcg PO DAILY07 Neurontin (Gabapentin) 100 Mg Capsule 100 Mg PO BID Miralax (Polyethylene Glycol 3350) 119 Gm Powder 17 Gm PO DAILY Lisinopril-Hctz 20-12.5 Mg Tab (Lisinopril/Hydrochlorothiazide) 1 Each Tablet 1 Tab PO DAILY Lipitor (Atorvastatin Calcium) 40 Mg Tablet 40 Mg PO DAILY Levemir Flextouch (Insulin Detemir) 100 Unit/1 Ml Insuln.pen 30 Unit SQ BID Humalog Kwikpen (Insulin Lispro) 200 Unit/1 Ml Insuln.pen 15 Unit SQ TIDAC Colace (Docusate Sodium) 100 Mg Capsule 100 Mg PO BID Cipro (Ciprofloxacin Hcl) 250 Mg Tablet 250 Mg PO BID 5 Days Aspirin 325 Mg Tablet 325 Mg PO DAILY Aricept (Donepezil Hcl) 10 Mg Tablet 10 Mg PO QHS Diagnosis: Problems: (1) Anxiety disorder (2) Impulse control disorder (3) Major depressive disorder, recurrent episode (4) Bipolar 1 disorder, mixed, moderate KLAUDIA ESCAMILLA MD Mar 29, 2017 19:55
[2017-03-29] MEDS: ACETAMINOPHEN 325 MG TABLET PO PRN (20:00)
--- NOTE | 2017-03-30 01:21 | PN ---
DATE: 03/28/2017 This is a late entry, 03/28/2017, covers the elements not covered in my initial note. I met with the patient in the evening of 03/28/2017. Overall, she remains somewhat depressed, withdrawn, but not sexually inappropriate or aggressive. She does complain of pain. Ambulation impaired. She is in her wheelchair and nursing staff will provide a wheelchair cushion for her seat. REVIEW OF SYSTEMS: No CV, , pulmonary, eye system symptoms on review. MENTAL STATUS EXAM: Oriented to her reasonably well. Speech is coherent, abstraction fair, computation impaired, and language function intact. Mood and affect showing some improvement. LABORATORY DATA: Reviewed. IMPRESSION: Unchanged from initial note. PLAN: Continue current psychotropics as mentioned in my initial note. Zoloft was added 25 mg a day. She is on BuSpar, which was increased, reviewed drug interactions, risk/benefit ratio favors no further change at this time. KLAUDIA ESCAMILLA MD DR: BILLY/kal JOB#: [id number] / [id number]
[2017-03-30 05:28] VITALS: BP 141/60
[2017-03-30] MEDS: LEVOTHYROXINE 100 MCG TABLET PO SCH (06:04)
[2017-03-30] MEDS: INSULIN ASPART 300 UNITS/3 ML INSULN.PEN SQ SCH ×3 (07:39→18:07)
[2017-03-30] MEDS: busPIRone 5 MG TABLET. PO SCH ×3 (08:33→20:09)
[2017-03-30] MEDS: DOCUSATE SODIUM 100 MG CAPSULE PO SCH ×2 (08:33→20:09)
[2017-03-30] MEDS: SERTRALINE 25 MG TABLET. PO SCH (08:33)
[2017-03-30] MEDS: GABAPENTIN 100 MG CAPSULE. PO SCH ×2 (08:33→20:09)
[2017-03-30] MEDS: ASPIRIN 325 MG TABLET PO SCH (08:33)
[2017-03-30] MEDS: LISINOPRIL 20 MG TABLET PO SCH (08:34)
[2017-03-30] MEDS: POLYETHYLENE GLYCOL 3350 17 GM PACKET. PO SCH (08:34)
[2017-03-30] MEDS: METOPROLOL SUCC 24HR ER 50 MG TAB.ER.24H. PO SCH (08:34)
[2017-03-30] MEDS: SMZ/TMP 800/160MG TABLET. PO SCH ×2 (08:34→20:09)
[2017-03-30] MEDS: hydroCHLOROthiazide 12.5 MG CAPSULE PO SCH (08:34)
[2017-03-30] MEDS: ENOXAPARIN 40 MG/0.4 ML DISP.SYRIN. SQ SCH (08:41)
[2017-03-30] MEDS: INSULIN DETEMIR 300 UNITS/3 ML INSULN.PEN. SQ SCH ×2 (08:44→20:11)
[2017-03-30 16:07] VITALS: BP 169/76
--- NOTE | 2017-03-30 19:46 | PDOC ---
Exam Claudio Demential Exam: Claudio Note: Please also refer to the separate dictated note~for this date of service dictated separately.~Patient seen individually. Discussed the patient with Nursing staff reviewed the chart.~Reviewed interim history and current functioning. Reviewed vital signs,~Labs/ Radiology~and current medications noted below. Continue current treatment with the changes noted in the dictated addendum note Assessment: Vital Signs: Vital Signs Date Time Temp Pulse Resp B/P (MAP) Pulse Ox O2 Delivery O2 Flow Rate FiO2 03/30/17 16:07 98.2 78 18 169/76 (107) 98 03/24/17 15:35 Room Air I&O Intake and Output 03/31/17 07:00 Intake Total 1200 ml Balance 1200 ml Intake Oral 1200 ml Labs: Laboratory Tests Test 03/30/17 07:21 03/30/17 08:38 03/30/17 11:44 03/30/17 16:35 Glucose (Fingerstick) 87 mg/dL (70-99) 128 mg/dL (70-99) H 176 mg/dL (70-99) H 138 mg/dL (70-99) H Current Medications: Meds: Current Medications Donepezil HCl (Aricept) 10 mg QHS PO Last administered on 03/29/17 19:50; Start 03/23/17 at 21:00 Olanzapine (ZyPREXA ZYDIS) 2.5 mg PRN Q2HR PRN PO Psychosis Last administered on 03/26/17 15:09; Start 03/23/17 at 06:30 Acetaminophen (Tylenol) 650 mg PRN Q6HRS PRN PO PAIN / TEMP Last administered on 03/29/17 20:00; Start 03/23/17 at 07:00 Aspirin (Isabel Aspirin) 325 mg DAILY PO Last administered on 03/30/17 08:33; Start 03/23/17 at 09:00 Ciprofloxacin (Cipro) 250 mg BID PO Last administered on 03/27/17 20:02; Start 03/23/17 at 09:00; Stop 03/28/17 at 08:59; Status DC Docusate Sodium (Colace) 100 mg BID PO Last administered on 03/30/17 08:33; Start 03/23/17 at 09:00 Gabapentin (Neurontin) 100 mg BID PO Last administered on 03/30/17 08:33; Start 03/23/17 at 09:00 Insulin Detemir (Levemir) 30 units BID SQ Last administered on 03/30/17 08:44; Start 03/23/17 at 09:00 Levothyroxine Sodium (Synthroid) 25 mcg DAILY07 PO Last administered on 08:49; Start 03/23/17 at 07:30; Stop 03/23/17 at 16:43; Status DC Metoprolol Succinate (Toprol Xl) 50 mg DAILY PO Last administered on 03/30/17 08:34; Start 03/23/17 at 09:00 Polyethylene Glycol (miraLAX) 17 gm DAILY PO Last administered on 03/30/17 08: 34; Start 03/23/17 at 09:00 Atorvastatin Calcium (Lipitor) 40 mg QHS PO Last administered on 03/29/17 19: 50; Start 03/23/17 at 21:00 Insulin Aspart (NovoLOG) 15 units TIDAC SQ Last administered on 03/26/17 12:09 ; Start 03/23/17 at 16:30; Stop 03/26/17 at 14:22; Status DC Levothyroxine Sodium (Synthroid) 200 mcg DAILY07 PO Last administered on 06:04; Start 03/23/17 at 09:00 Lisinopril (Prinivil) 20 mg DAILY PO Last administered on 03/30/17 08:34; Start 03/23/17 at 09:00 Enoxaparin Sodium (Lovenox) 30 mg Q24H SQ Last administered on 03/23/17 08:52 ; Start 03/23/17 at 09:00; Stop 03/23/17 at 09:31; Status DC Hydrochlorothiazide (Microzide) 12.5 mg DAILY PO Last administered on 03/30/17 08:34; Start 03/23/17 at 09:00 Enoxaparin Sodium (Lovenox) 40 mg Q24H SQ Last administered on 03/30/17 08:41; Start 03/24/17 at 09:00 Glucose (Insta-Glucose) 15 gm STK-MED ONCE .ROUTE Last administered on 16:35; Start 03/24/17 at 16:35; Stop 03/24/17 at 16:36; Status DC Glucose (Insta-Glucose) 15 gm STK-MED ONCE .ROUTE Last administered on 16:59; Start 03/24/17 at 16:55; Stop 03/24/17 at 16:56; Status DC Multi-Ingredient Ointment (Analgesic [place]) 1 judith PRN QID PRN TP MUSCLE PAIN; Start 03/24/17 at 18:30 Insulin Aspart (NovoLOG) 15 units TIDAC SQ Last administered on 03/30/17 18:07 ; Start 03/26/17 at 14:22 Buspirone HCl (Buspar) 5 mg BID92 PO Last administered on 03/28/17 09:32; Start 03/27/17 at 09:00; Stop 03/28/17 at 13:11; Status DC Buspirone HCl (Buspar) 5 mg TID PO Last administered on 03/30/17 14:46; Start 03/28/17 at 14:00 Sertraline HCl (Zoloft) 25 mg DAILY PO Last administered on 03/30/17 08:33; Start 03/29/17 at 09:00 Trimethoprim/ Sulfamethoxazole (Bactrim Ds) 1 tab BID PO Last administered on 08:34; Start 03/29/17 at 21:00 Active Scripts Active Reported Tylenol (Acetaminophen) 325 Mg Tablet 650 Mg PO PRN Q6HRS PRN Metoprolol Succinate ( Xl ) (Metoprolol Succinate) 50 Mg Tab.er.24h 50 Mg PO DAILY Synthroid (Levothyroxine Sodium) 25 Mcg Tablet 25 Mcg PO DAILY07 Synthroid (Levothyroxine Sodium) 200 Mcg Tablet 200 Mcg PO DAILY07 Neurontin (Gabapentin) 100 Mg Capsule 100 Mg PO BID Miralax (Polyethylene Glycol 3350) 119 Gm Powder 17 Gm PO DAILY Lisinopril-Hctz 20-12.5 Mg Tab (Lisinopril/Hydrochlorothiazide) 1 Each Tablet 1 Tab PO DAILY Lipitor (Atorvastatin Calcium) 40 Mg Tablet 40 Mg PO DAILY Levemir Flextouch (Insulin Detemir) 100 Unit/1 Ml Insuln.pen 30 Unit SQ BID Humalog Kwikpen (Insulin Lispro) 200 Unit/1 Ml Insuln.pen 15 Unit SQ TIDAC Colace (Docusate Sodium) 100 Mg Capsule 100 Mg PO BID Cipro (Ciprofloxacin Hcl) 250 Mg Tablet 250 Mg PO BID 5 Days Aspirin 325 Mg Tablet 325 Mg PO DAILY Aricept (Donepezil Hcl) 10 Mg Tablet 10 Mg PO QHS Diagnosis: Problems: (1) Anxiety disorder (2) Impulse control disorder (3) Major depressive disorder, recurrent episode (4) Bipolar 1 disorder, mixed, moderate KLAUDIA ESCAMILLA MD Mar 30, 2017 19:46
[2017-03-30] MEDS: ATORVASTATIN CALCIUM 20 MG TABLET PO SCH (20:09)
[2017-03-30] MEDS: DONEPEZIL HCL 10 MG TABLET PO SCH (20:09)
--- NOTE | 2017-03-31 05:10 | PN ---
DATE: 03/29/2017 This late entry, 03/29/2017, covers elements not covered in my initial note of 03/29/2017. SUBJECTIVE: The patient was staffed at treatment team meeting with the entire team morning of 03/29/2017. Tianna Anderson, stepdaughter, was to participate in the treatment team meeting. The patient slept 7-1/4 hours previous evening. I met with her individually evening of 03/29/2017, complains of impaired ambulation and wheelchair, complains of pain in the bottom. Staff will provide extra cushion for the wheelchair. Appetite is poor. REVIEW OF SYSTEMS: Other than above, no CV, , pulmonary, eye system symptoms on review. MENTAL STATUS EXAM: Oriented to herself and situation. UAs Gram-negative rods, culture awaited. Abstraction fair, computation impaired, language function intact. No sexually inappropriate behaviors noted. No suicidal or homicidal ideation. LABORATORY DATA: Reviewed. IMPRESSION: Unchanged from initial note. PLAN: Continue psychotropics mentioned in my initial note. Adjust further as clinically indicated. Reviewed drug interactions. Risk/benefit ratio favors no further change. Treat the UTI per Dr. Castaneda. MAN Azar ESCAMILLA MD DR: BILLY/akl JOB#: [id number] / [id number]
[2017-03-31 05:44] VITALS: BP 114/56
[2017-03-31] MEDS: LEVOTHYROXINE 100 MCG TABLET PO SCH (06:04)
[2017-03-31] MEDS: INSULIN ASPART 300 UNITS/3 ML INSULN.PEN SQ SCH ×4 (07:30→17:30)
[2017-03-31 08:25] LABS: ALBUMIN 2.8 g/dL (3.4-5.0); ALBUMIN/GLOBULIN RATIO 0.6 (1.0-1.7); CALCIUM 8.9 mg/dL (8.5-10.1); CREATININE 1.7 mg/dL (0.6-1.0); GFR 34.8; POTASSIUM 4.5 mmol/L (3.5-5.1); TOTAL BILIRUBIN 0.2 mg/dL (0.2-1.0); TOTAL PROTEIN 7.8 g/dL (6.4-8.2)
[2017-03-31 08:28] LABS: BASO % 1 % (0-3); EOS # 0.1 x10^3/uL (0.0-0.7); EOS % 2 % (0-3); HEMATOCRIT 35.7 % (36.0-47.0); HEMOGLOBIN 11.4 g/dL (12.0-15.5); LYMPH % 25 % (24-48); MEAN CORPUSCULAR HEMOGLOBIN 31 pg (25-35); MEAN CORPUSCULAR HGB CONC 32 g/dL (31-37); MEAN CORPUSCULAR VOLUME 96 fL (79-100); MONO # 0.7 x10^3/uL (0.0-1.1); MONO % 9 % (0-9); NEUT # 5.1 x10^3uL (1.8-7.7); NEUT % 64 % (31-73); PLATELET COUNT 268 x10^3/uL (140-400); RED BLOOD COUNT 3.73 x10^6/uL (3.50-5.40); RED CELL DISTRIBUTION WIDTH 15.2 % (11.5-14.5); WHITE BLOOD COUNT 7.9 x10^3/uL (4.0-11.0)
[2017-03-31] MEDS: DOCUSATE SODIUM 100 MG CAPSULE PO SCH ×2 (08:31→21:03)
[2017-03-31] MEDS: busPIRone 5 MG TABLET. PO SCH ×3 (08:31→21:03)
[2017-03-31] MEDS: ASPIRIN 325 MG TABLET PO SCH (08:31)
[2017-03-31] MEDS: SMZ/TMP 800/160MG TABLET. PO SCH ×2 (08:31→21:03)
[2017-03-31] MEDS: hydroCHLOROthiazide 12.5 MG CAPSULE PO SCH (08:31)
[2017-03-31] MEDS: POLYETHYLENE GLYCOL 3350 17 GM PACKET. PO SCH (08:32)
[2017-03-31] MEDS: GABAPENTIN 100 MG CAPSULE. PO SCH ×2 (08:32→21:03)
[2017-03-31] MEDS: LISINOPRIL 20 MG TABLET PO SCH (08:33)
[2017-03-31] MEDS: METOPROLOL SUCC 24HR ER 50 MG TAB.ER.24H. PO SCH (08:33)
[2017-03-31] MEDS: SERTRALINE 25 MG TABLET. PO SCH (08:33)
[2017-03-31] MEDS: ENOXAPARIN 40 MG/0.4 ML DISP.SYRIN. SQ SCH (08:35)
[2017-03-31] MEDS: INSULIN DETEMIR 300 UNITS/3 ML INSULN.PEN. SQ SCH ×2 (08:50→21:00)
[2017-03-31] MEDS: ACETAMINOPHEN 325 MG TABLET PO PRN (13:24)
[2017-03-31 16:07] VITALS: BP 149/70
[2017-03-31] MEDS: ATORVASTATIN CALCIUM 20 MG TABLET PO SCH (21:03)
[2017-03-31] MEDS: DONEPEZIL HCL 10 MG TABLET PO SCH (21:03)
--- NOTE | 2017-03-31 23:19 | PDOC ---
Exam Claudio Demential Exam: Claudio Note: Please also refer to the separate dictated note~for this date of service dictated separately.~Patient seen individually. Discussed the patient with Nursing staff reviewed the chart.~Reviewed interim history and current functioning. Reviewed vital signs,~Labs/ Radiology~and current medications noted below. Continue current treatment with the changes noted in the dictated addendum note Assessment: Vital Signs: Vital Signs Date Time Temp Pulse Resp B/P (MAP) Pulse Ox O2 Delivery O2 Flow Rate FiO2 03/31/17 16:07 97.5 60 20 149/70 (96) 99 I&O Intake and Output 04/01/17 06:59 Intake Total 720 ml Balance 720 ml Intake Oral 720 ml # Voids 2 Labs: Laboratory Tests Test 03/31/17 07:23 03/31/17 07:45 03/31/17 11:27 03/31/17 17:01 Glucose (Fingerstick) 91 mg/dL (70-99) 124 mg/dL (70-99) H 81 mg/dL (70-99) White Blood Count 7.9 x10^3/uL (4.0-11.0) Red Blood Count 3.73 x10^6/uL (3.50-5.40) Hemoglobin 11.4 g/dL (12.0-15.5) L Hematocrit 35.7 % (36.0-47.0) L Mean Corpuscular Volume 96 fL (79-100) Mean Corpuscular Hemoglobin 31 pg (25-35) Mean Corpuscular Hemoglobin Concent 32 g/dL (31-37) Red Cell Distribution Width 15.2 % (11.5-14.5) H Platelet Count 268 x10^3/uL (140-400) Neutrophils (%) (Auto) 64 % (31-73) Lymphocytes (%) (Auto) 25 % (24-48) Monocytes (%) (Auto) 9 % (0-9) Eosinophils (%) (Auto) 2 % (0-3) Basophils (%) (Auto) 1 % (0-3) Neutrophils # (Auto) 5.1 x10^3uL (1.8-7.7) Lymphocytes # (Auto) 2.0 x10^3/uL (1.0-4.8) Monocytes # (Auto) 0.7 x10^3/uL (0.0-1.1) Eosinophils # (Auto) 0.1 x10^3/uL (0.0-0.7) Basophils # (Auto) 0.0 x10^3/uL (0.0-0.2) Sodium Level 140 mmol/L (136-145) Potassium Level 4.5 mmol/L (3.5-5.1) Chloride Level 106 mmol/L (98-107) Carbon Dioxide Level 27 mmol/L (21-32) Anion Gap 7 (6-14) Blood Urea Nitrogen 26 mg/dL (7-20) H Creatinine 1.7 mg/dL (0.6-1.0) H Estimated GFR (Cockcroft-Gault) 34.8 BUN/Creatinine Ratio 15 (6-20) Glucose Level 89 mg/dL (70-99) Calcium Level 8.9 mg/dL (8.5-10.1) Total Bilirubin 0.2 mg/dL (0.2-1.0) Aspartate Amino Transferase (AST) 61 U/L (15-37) H Alanine Aminotransferase (ALT) 58 U/L (14-59) Alkaline Phosphatase 94 U/L (46-116) Total Protein 7.8 g/dL (6.4-8.2) Albumin 2.8 g/dL (3.4-5.0) L Albumin/Globulin Ratio 0.6 (1.0-1.7) L Test 03/31/17 19:15 03/31/17 20:00 03/31/17 20:32 Glucose (Fingerstick) 46 mg/dL (70-99) L 96 mg/dL (70-99) 106 mg/dL (70-99) H Current Medications: Meds: Current Medications Donepezil HCl (Aricept) 10 mg QHS PO Last administered on 03/31/17 21:03; Start 03/23/17 at 21:00 Olanzapine (ZyPREXA ZYDIS) 2.5 mg PRN Q2HR PRN PO Psychosis Last administered on 03/26/17 15:09; Start 03/23/17 at 06:30 Acetaminophen (Tylenol) 650 mg PRN Q6HRS PRN PO PAIN / TEMP Last administered on 03/31/17 13:24; Start 03/23/17 at 07:00 Aspirin (Isabel Aspirin) 325 mg DAILY PO Last administered on 03/31/17 08:31; Start 03/23/17 at 09:00 Ciprofloxacin (Cipro) 250 mg BID PO Last administered on 03/27/17 20:02; Start 03/23/17 at 09:00; Stop 03/28/17 at 08:59; Status DC Docusate Sodium (Colace) 100 mg BID PO Last administered on 03/31/17 21:03; Start 03/23/17 at 09:00 Gabapentin (Neurontin) 100 mg BID PO Last administered on 03/31/17 21:03; Start 03/23/17 at 09:00 Insulin Detemir (Levemir) 30 units BID SQ Last administered on 03/31/17 08:50; Start 03/23/17 at 09:00 Levothyroxine Sodium (Synthroid) 25 mcg DAILY07 PO Last administered on 08:49; Start 03/23/17 at 07:30; Stop 03/23/17 at 16:43; Status DC Metoprolol Succinate (Toprol Xl) 50 mg DAILY PO Last administered on 03/31/17 08:33; Start 03/23/17 at 09:00 Polyethylene Glycol (miraLAX) 17 gm DAILY PO Last administered on 03/31/17 08: 32; Start 03/23/17 at 09:00 Atorvastatin Calcium (Lipitor) 40 mg QHS PO Last administered on 03/31/17 21:03 ; Start 03/23/17 at 21:00 Insulin Aspart (NovoLOG) 15 units TIDAC SQ Last administered on 03/26/17 12:09 ; Start 03/23/17 at 16:30; Stop 03/26/17 at 14:22; Status DC Levothyroxine Sodium (Synthroid) 200 mcg DAILY07 PO Last administered on 06:04; Start 03/23/17 at 09:00 Lisinopril (Prinivil) 20 mg DAILY PO Last administered on 03/31/17 08:33; Start 03/23/17 at 09:00 Enoxaparin Sodium (Lovenox) 30 mg Q24H SQ Last administered on 03/23/17 08:52 ; Start 03/23/17 at 09:00; Stop 03/23/17 at 09:31; Status DC Hydrochlorothiazide (Microzide) 12.5 mg DAILY PO Last administered on 03/31/17 08:31; Start 03/23/17 at 09:00 Enoxaparin Sodium (Lovenox) 40 mg Q24H SQ Last administered on 03/31/17 08:35; Start 03/24/17 at 09:00 Glucose (Insta-Glucose) 15 gm STK-MED ONCE .ROUTE Last administered on 16:35; Start 03/24/17 at 16:35; Stop 03/24/17 at 16:36; Status DC Glucose (Insta-Glucose) 15 gm STK-MED ONCE .ROUTE Last administered on 16:59; Start 03/24/17 at 16:55; Stop 03/24/17 at 16:56; Status DC Multi-Ingredient Ointment (Analgesic [place]) 1 judith PRN QID PRN TP MUSCLE PAIN; Start 03/24/17 at 18:30 Insulin Aspart (NovoLOG) 15 units TIDAC SQ Last administered on 03/31/17 12:28 ; Start 03/26/17 at 14:22 Buspirone HCl (Buspar) 5 mg [id number] PO Last administered on 03/28/17 09:32; Start 03/27/17 at 09:00; Stop 03/28/17 at 13:11; Status DC Buspirone HCl (Buspar) 5 mg TID PO Last administered on 03/31/17 08:31; Start 03/28/17 at 14:00; Stop 03/31/17 at 13:17; Status DC Sertraline HCl (Zoloft) 25 mg DAILY PO Last administered on 03/31/17 08:33; Start 03/29/17 at 09:00 Trimethoprim/ Sulfamethoxazole (Bactrim Ds) 1 tab BID PO Last administered on 21:03; Start 03/29/17 at 21:00 Buspirone HCl (Buspar) 5 mg [id number] PO Last administered on 03/31/17 21:03; Start 03/31/17 at 18:00 Active Scripts Active Reported Tylenol (Acetaminophen) 325 Mg Tablet 650 Mg PO PRN Q6HRS PRN Metoprolol Succinate ( Xl ) (Metoprolol Succinate) 50 Mg Tab.er.24h 50 Mg PO DAILY Synthroid (Levothyroxine Sodium) 25 Mcg Tablet 25 Mcg PO DAILY07 Synthroid (Levothyroxine Sodium) 200 Mcg Tablet 200 Mcg PO DAILY07 Neurontin (Gabapentin) 100 Mg Capsule 100 Mg PO BID Miralax (Polyethylene Glycol 3350) 119 Gm Powder 17 Gm PO DAILY Lisinopril-Hctz 20-12.5 Mg Tab (Lisinopril/Hydrochlorothiazide) 1 Each Tablet 1 Tab PO DAILY Lipitor (Atorvastatin Calcium) 40 Mg Tablet 40 Mg PO DAILY Levemir Flextouch (Insulin Detemir) 100 Unit/1 Ml Insuln.pen 30 Unit SQ BID Humalog Kwikpen (Insulin Lispro) 200 Unit/1 Ml Insuln.pen 15 Unit SQ TIDAC Colace (Docusate Sodium) 100 Mg Capsule 100 Mg PO BID Cipro (Ciprofloxacin Hcl) 250 Mg Tablet 250 Mg PO BID 5 Days Aspirin 325 Mg Tablet 325 Mg PO DAILY Aricept (Donepezil Hcl) 10 Mg Tablet 10 Mg PO QHS Diagnosis: Problems: (1) Anxiety disorder (2) Impulse control disorder (3) Major depressive disorder, recurrent episode (4) Mild cognitive disorder (5) Bipolar 1 disorder, mixed, moderate KLAUDIA ESCAMILLA MD Mar 31, 2017 23:19
--- NOTE | 2017-04-01 04:18 | PN ---
DATE: 03/30/2017 PSYCHIATRIC PROGRESS NOTE This is a late entry of 03/30/2017 covers elements not covered in my initial note. SUBJECTIVE: I met with the patient evening of 03/30/2017. Per nursing report, the patient has been quiet, somewhat over expressive and exaggerates when needles are used for insulin. REVIEW OF SYSTEMS: Impaired ambulation, in wheelchair, complains of some pain in the bottom. Nursing staff will provide a soft cushion in the wheelchair. No CV, , pulmonary, eye system symptoms on review. MENTAL STATUS EXAM: Complained of feeling cold, alert, oriented. Abstraction fair, computation impaired, language function intact. Mood and affect, lability is improved. LABORATORY DATA: Reviewed. IMPRESSION: Unchanged from initial note. PLAN: Increase BuSpar starting 03/31/2017 to 5 mg 4 times a day. Continue the rest of his psychotropics. Adjust further as clinically indicated. KLAUDIA ESCAMILLA MD DR: BILLY/kal JOB#: [id number] / [id number]
[2017-04-01 05:55] VITALS: BP 117/72
[2017-04-01] MEDS: ASPIRIN 325 MG TABLET PO SCH (07:44)
[2017-04-01] MEDS: DOCUSATE SODIUM 100 MG CAPSULE PO SCH ×2 (07:44→21:07)
[2017-04-01] MEDS: busPIRone 5 MG TABLET. PO SCH ×4 (07:44→21:07)
[2017-04-01] MEDS: LISINOPRIL 20 MG TABLET PO SCH (07:45)
[2017-04-01] MEDS: SMZ/TMP 800/160MG TABLET. PO SCH ×2 (07:46→21:07)
[2017-04-01] MEDS: LEVOTHYROXINE 100 MCG TABLET PO SCH (07:46)
[2017-04-01] MEDS: hydroCHLOROthiazide 12.5 MG CAPSULE PO SCH (07:47)
[2017-04-01] MEDS: GABAPENTIN 100 MG CAPSULE. PO SCH ×2 (07:47→21:07)
[2017-04-01] MEDS: METOPROLOL SUCC 24HR ER 50 MG TAB.ER.24H. PO SCH (07:47)
[2017-04-01] MEDS: SERTRALINE 25 MG TABLET. PO SCH (07:47)
[2017-04-01] MEDS: POLYETHYLENE GLYCOL 3350 17 GM PACKET. PO SCH (07:48)
[2017-04-01] MEDS: ENOXAPARIN 40 MG/0.4 ML DISP.SYRIN. SQ SCH (07:48)
[2017-04-01] MEDS: ACETAMINOPHEN 325 MG TABLET PO PRN ×2 (09:50→15:29)
[2017-04-01] MEDS: INSULIN DETEMIR 300 UNITS/3 ML INSULN.PEN. SQ SCH ×2 (09:53→21:11)
[2017-04-01] MEDS: INSULIN ASPART 300 UNITS/3 ML INSULN.PEN SQ SCH ×3 (09:55→18:16)
[2017-04-01 15:46] VITALS: BP 105/60
[2017-04-01] MEDS: ATORVASTATIN CALCIUM 20 MG TABLET PO SCH (21:06)
[2017-04-01] MEDS: DONEPEZIL HCL 10 MG TABLET PO SCH (21:07)
--- NOTE | 2017-04-01 21:48 | PDOC ---
Exam Claudio Demential Exam: Claudio Note: Please also refer to the separate dictated note~for this date of service dictated separately.~Patient seen individually. Discussed the patient with Nursing staff reviewed the chart.~Reviewed interim history and current functioning. Reviewed vital signs,~Labs/ Radiology~and current medications noted below. Continue current treatment with the changes noted in the dictated addendum note Assessment: Vital Signs: Vital Signs Date Time Temp Pulse Resp B/P (MAP) Pulse Ox O2 Delivery O2 Flow Rate FiO2 04/01/17 15:46 97.3 64 20 105/60 (75) 98 I&O Intake and Output 04/02/17 06:59 Intake Total 920 ml Balance 920 ml Intake Oral 920 ml Labs: Laboratory Tests Test 04/01/17 02:21 04/01/17 06:11 04/01/17 07:16 04/01/17 11:46 Glucose (Fingerstick) 133 mg/dL (70-99) H 121 mg/dL (70-99) H 129 mg/dL (70-99) H 153 mg/dL (70-99) H Test 04/01/17 16:21 04/01/17 19:16 Glucose (Fingerstick) 134 mg/dL (70-99) H 190 mg/dL (70-99) H Current Medications: Meds: Current Medications Donepezil HCl (Aricept) 10 mg QHS PO Last administered on 04/01/17 21:07; Start 03/23/17 at 21:00 Olanzapine (ZyPREXA ZYDIS) 2.5 mg PRN Q2HR PRN PO Psychosis Last administered on 03/26/17 15:09; Start 03/23/17 at 06:30 Acetaminophen (Tylenol) 650 mg PRN Q6HRS PRN PO PAIN / TEMP Last administered on 04/01/17 15:29; Start 03/23/17 at 07:00 Aspirin (Isabel Aspirin) 325 mg DAILY PO Last administered on 04/01/17 07:44; Start 03/23/17 at 09:00 Ciprofloxacin (Cipro) 250 mg BID PO Last administered on 03/27/17 20:02; Start 03/23/17 at 09:00; Stop 03/28/17 at 08:59; Status DC Docusate Sodium (Colace) 100 mg BID PO Last administered on 04/01/17 21:07; Start 03/23/17 at 09:00 Gabapentin (Neurontin) 100 mg BID PO Last administered on 04/01/17 21:07; Start 03/23/17 at 09:00 Insulin Detemir (Levemir) 30 units BID SQ Last administered on 04/01/17 09:53; Start 03/23/17 at 09:00; Stop 04/01/17 at 13:47; Status DC Levothyroxine Sodium (Synthroid) 25 mcg DAILY07 PO Last administered on 08:49; Start 03/23/17 at 07:30; Stop 03/23/17 at 16:43; Status DC Metoprolol Succinate (Toprol Xl) 50 mg DAILY PO Last administered on 04/01/17 07:47; Start 03/23/17 at 09:00 Polyethylene Glycol (miraLAX) 17 gm DAILY PO Last administered on 04/01/17 07: 48; Start 03/23/17 at 09:00 Atorvastatin Calcium (Lipitor) 40 mg QHS PO Last administered on 04/01/17 21:06 ; Start 03/23/17 at 21:00 Insulin Aspart (NovoLOG) 15 units TIDAC SQ Last administered on 03/26/17 12:09 ; Start 03/23/17 at 16:30; Stop 03/26/17 at 14:22; Status DC Levothyroxine Sodium (Synthroid) 200 mcg DAILY07 PO Last administered on 07:46; Start 03/23/17 at 09:00 Lisinopril (Prinivil) 20 mg DAILY PO Last administered on 04/01/17 07:45; Start 03/23/17 at 09:00 Enoxaparin Sodium (Lovenox) 30 mg Q24H SQ Last administered on 03/23/17 08:52 ; Start 03/23/17 at 09:00; Stop 03/23/17 at 09:31; Status DC Hydrochlorothiazide (Microzide) 12.5 mg DAILY PO Last administered on 04/01/17 07:47; Start 03/23/17 at 09:00 Enoxaparin Sodium (Lovenox) 40 mg Q24H SQ Last administered on 04/01/17 07:48; Start 03/24/17 at 09:00 Glucose (Insta-Glucose) 15 gm STK-MED ONCE .ROUTE Last administered on 16:35; Start 03/24/17 at 16:35; Stop 03/24/17 at 16:36; Status DC Glucose (Insta-Glucose) 15 gm STK-MED ONCE .ROUTE Last administered on 16:59; Start 03/24/17 at 16:55; Stop 03/24/17 at 16:56; Status DC Multi-Ingredient Ointment (Analgesic [place]) 1 judith PRN QID PRN TP MUSCLE PAIN; Start 03/24/17 at 18:30 Insulin Aspart (NovoLOG) 15 units TIDAC SQ Last administered on 04/01/17 18:16 ; Start 03/26/17 at 14:22 Buspirone HCl (Buspar) 5 mg [id number] PO Last administered on 03/28/17 09:32; Start 03/27/17 at 09:00; Stop 03/28/17 at 13:11; Status DC Buspirone HCl (Buspar) 5 mg TID PO Last administered on 03/31/17 08:31; Start 03/28/17 at 14:00; Stop 03/31/17 at 13:17; Status DC Sertraline HCl (Zoloft) 25 mg DAILY PO Last administered on 04/01/17 07:47; Start 03/29/17 at 09:00; Stop 04/01/17 at 18:52; Status DC Trimethoprim/ Sulfamethoxazole (Bactrim Ds) 1 tab BID PO Last administered on 21:07; Start 03/29/17 at 21:00 Buspirone HCl (Buspar) 5 mg [id number] PO Last administered on 04/01/17 21:07; Start 03/31/17 at 18:00 Insulin Detemir (Levemir) 20 units BID SQ Last administered on 04/01/17 21:11; Start 04/01/17 at 21:00 Sertraline HCl (Zoloft) 50 mg DAILY PO ; Start 04/02/17 at 09:00 Active Scripts Active Reported Tylenol (Acetaminophen) 325 Mg Tablet 650 Mg PO PRN Q6HRS PRN Metoprolol Succinate ( Xl ) (Metoprolol Succinate) 50 Mg Tab.er.24h 50 Mg PO DAILY Synthroid (Levothyroxine Sodium) 25 Mcg Tablet 25 Mcg PO DAILY07 Synthroid (Levothyroxine Sodium) 200 Mcg Tablet 200 Mcg PO DAILY07 Neurontin (Gabapentin) 100 Mg Capsule 100 Mg PO BID Miralax (Polyethylene Glycol 3350) 119 Gm Powder 17 Gm PO DAILY Lisinopril-Hctz 20-12.5 Mg Tab (Lisinopril/Hydrochlorothiazide) 1 Each Tablet 1 Tab PO DAILY Lipitor (Atorvastatin Calcium) 40 Mg Tablet 40 Mg PO DAILY Levemir Flextouch (Insulin Detemir) 100 Unit/1 Ml Insuln.pen 30 Unit SQ BID Humalog Kwikpen (Insulin Lispro) 200 Unit/1 Ml Insuln.pen 15 Unit SQ TIDAC Colace (Docusate Sodium) 100 Mg Capsule 100 Mg PO BID Cipro (Ciprofloxacin Hcl) 250 Mg Tablet 250 Mg PO BID 5 Days Aspirin 325 Mg Tablet 325 Mg PO DAILY Aricept (Donepezil Hcl) 10 Mg Tablet 10 Mg PO QHS Diagnosis: Problems: (1) Anxiety disorder (2) Impulse control disorder (3) Major depressive disorder, recurrent episode (4) Bipolar 1 disorder, mixed, moderate KLAUDIA ESCAMILLA MD Apr 01, 2017 21:48
--- NOTE | 2017-04-02 00:22 | PN ---
DATE: 03/31/2017 PSYCHIATRIC PROGRESS NOTE This is a late entry date of service 03/31/2017 covers elements not covered in my initial. SUBJECTIVE: I met with the patient evening of 03/31/2017 in her room. She has been fairly cooperative, not sexually aggressive. REVIEW OF SYSTEMS: Ambulation impaired in a wheelchair. No CV, , pulmonary, eye system symptoms on review. MENTAL STATUS EXAM: Oriented to herself and situation. Speech is coherent, abstraction fair, computation impaired, language function intact. Mood and affect has improved. Diagnosis mentioned in my initial note. PLAN: Continue psychotropics mentioned in my initial note. Reviewed drug interactions carefully. KLAUDIA ESCAMILLA MD DR: BILLY/kal JOB#: [id number] / [id number]
[2017-04-02] MEDS: busPIRone 5 MG TABLET. PO SCH ×3 (05:26→20:45)
[2017-04-02] MEDS: LEVOTHYROXINE 100 MCG TABLET PO SCH (05:26)
[2017-04-02 06:24] VITALS: BP 124/78
[2017-04-02] MEDS: SMZ/TMP 800/160MG TABLET. PO SCH ×2 (07:55→20:45)
[2017-04-02] MEDS: ASPIRIN 325 MG TABLET PO SCH (07:56)
[2017-04-02] MEDS: DOCUSATE SODIUM 100 MG CAPSULE PO SCH ×2 (07:56→20:44)
[2017-04-02] MEDS: hydroCHLOROthiazide 12.5 MG CAPSULE PO SCH (07:56)
[2017-04-02] MEDS: GABAPENTIN 100 MG CAPSULE. PO SCH ×2 (07:57→20:44)
[2017-04-02] MEDS: METOPROLOL SUCC 24HR ER 50 MG TAB.ER.24H. PO SCH (07:57)
[2017-04-02] MEDS: LISINOPRIL 20 MG TABLET PO SCH (07:57)
[2017-04-02] MEDS: POLYETHYLENE GLYCOL 3350 17 GM PACKET. PO SCH (07:57)
[2017-04-02] MEDS: ENOXAPARIN 40 MG/0.4 ML DISP.SYRIN. SQ SCH (08:00)
[2017-04-02] MEDS: SERTRALINE 50 MG TABLET. PO SCH (08:00)
[2017-04-02] MEDS: INSULIN ASPART 300 UNITS/3 ML INSULN.PEN SQ SCH ×2 (08:01→12:03)
[2017-04-02] MEDS: INSULIN DETEMIR 300 UNITS/3 ML INSULN.PEN. SQ SCH ×2 (08:02→20:44)
[2017-04-02 15:45] VITALS: BP 156/74
[2017-04-02] MEDS: DONEPEZIL HCL 10 MG TABLET PO SCH (20:44)
[2017-04-02] MEDS: ATORVASTATIN CALCIUM 20 MG TABLET PO SCH (20:45)
--- NOTE | 2017-04-02 22:44 | PDOC ---
Exam Claudio Demential Exam: Claudio Note: Please also refer to the separate dictated note~for this date of service dictated separately.~Patient seen individually. Discussed the patient with Nursing staff reviewed the chart.~Reviewed interim history and current functioning. Reviewed vital signs,~Labs/ Radiology~and current medications noted below. Continue current treatment with the changes noted in the dictated addendum note Assessment: Vital Signs: Vital Signs Date Time Temp Pulse Resp B/P (MAP) Pulse Ox O2 Delivery O2 Flow Rate FiO2 04/02/17 15:45 97.5 73 20 156/74 (101) 98 I&O Intake and Output 04/03/17 06:59 Intake Total 1080 ml Balance 1080 ml Intake Oral 1080 ml # Voids 2 Labs: Laboratory Tests Test 04/02/17 07:24 04/02/17 11:02 04/02/17 16:27 04/02/17 19:02 Glucose (Fingerstick) 90 mg/dL (70-99) 123 mg/dL (70-99) H 82 mg/dL (70-99) 129 mg/dL (70-99) H Current Medications: Meds: Current Medications Donepezil HCl (Aricept) 10 mg QHS PO Last administered on 04/02/17 20:44; Start 03/23/17 at 21:00 Olanzapine (ZyPREXA ZYDIS) 2.5 mg PRN Q2HR PRN PO Psychosis Last administered on 03/26/17 15:09; Start 03/23/17 at 06:30 Acetaminophen (Tylenol) 650 mg PRN Q6HRS PRN PO PAIN / TEMP Last administered on 04/01/17 15:29; Start 03/23/17 at 07:00 Aspirin (Isabel Aspirin) 325 mg DAILY PO Last administered on 04/02/17 07:56; Start 03/23/17 at 09:00 Ciprofloxacin (Cipro) 250 mg BID PO Last administered on 03/27/17 20:02; Start 03/23/17 at 09:00; Stop 03/28/17 at 08:59; Status DC Docusate Sodium (Colace) 100 mg BID PO Last administered on 04/02/17 20:44; Start 03/23/17 at 09:00 Gabapentin (Neurontin) 100 mg BID PO Last administered on 04/02/17 20:44; Start 03/23/17 at 09:00 Insulin Detemir (Levemir) 30 units BID SQ Last administered on 04/01/17 09:53; Start 03/23/17 at 09:00; Stop 04/01/17 at 13:47; Status DC Levothyroxine Sodium (Synthroid) 25 mcg DAILY07 PO Last administered on 08:49; Start 03/23/17 at 07:30; Stop 03/23/17 at 16:43; Status DC Metoprolol Succinate (Toprol Xl) 50 mg DAILY PO Last administered on 04/02/17 07:57; Start 03/23/17 at 09:00 Polyethylene Glycol (miraLAX) 17 gm DAILY PO Last administered on 04/02/17 07: 57; Start 03/23/17 at 09:00 Atorvastatin Calcium (Lipitor) 40 mg QHS PO Last administered on 04/02/17 20:45 ; Start 03/23/17 at 21:00 Insulin Aspart (NovoLOG) 15 units TIDAC SQ Last administered on 03/26/17 12:09 ; Start 03/23/17 at 16:30; Stop 03/26/17 at 14:22; Status DC Levothyroxine Sodium (Synthroid) 200 mcg DAILY07 PO Last administered on 05:26; Start 03/23/17 at 09:00 Lisinopril (Prinivil) 20 mg DAILY PO Last administered on 04/02/17 07:57; Start 03/23/17 at 09:00 Enoxaparin Sodium (Lovenox) 30 mg Q24H SQ Last administered on 03/23/17 08:52 ; Start 03/23/17 at 09:00; Stop 03/23/17 at 09:31; Status DC Hydrochlorothiazide (Microzide) 12.5 mg DAILY PO Last administered on 04/02/17 07:56; Start 03/23/17 at 09:00 Enoxaparin Sodium (Lovenox) 40 mg Q24H SQ Last administered on 04/02/17 08:00; Start 03/24/17 at 09:00 Glucose (Insta-Glucose) 15 gm STK-MED ONCE .ROUTE Last administered on 16:35; Start 03/24/17 at 16:35; Stop 03/24/17 at 16:36; Status DC Glucose (Insta-Glucose) 15 gm STK-MED ONCE .ROUTE Last administered on 16:59; Start 03/24/17 at 16:55; Stop 03/24/17 at 16:56; Status DC Multi-Ingredient Ointment (Analgesic [place]) 1 judith PRN QID PRN TP MUSCLE PAIN; Start 03/24/17 at 18:30 Insulin Aspart (NovoLOG) 15 units TIDAC SQ Last administered on 04/02/17 12:03 ; Start 03/26/17 at 14:22 Buspirone HCl (Buspar) 5 mg [id number] PO Last administered on 03/28/17 09:32; Start 03/27/17 at 09:00; Stop 03/28/17 at 13:11; Status DC Buspirone HCl (Buspar) 5 mg TID PO Last administered on 03/31/17 08:31; Start 03/28/17 at 14:00; Stop 03/31/17 at 13:17; Status DC Sertraline HCl (Zoloft) 25 mg DAILY PO Last administered on 04/01/17 07:47; Start 03/29/17 at 09:00; Stop 04/01/17 at 18:52; Status DC Trimethoprim/ Sulfamethoxazole (Bactrim Ds) 1 tab BID PO Last administered on 20:45; Start 03/29/17 at 21:00 Buspirone HCl (Buspar) 5 mg [id number] PO Last administered on 04/02/17 20:45; Start 03/31/17 at 18:00 Insulin Detemir (Levemir) 20 units BID SQ Last administered on 04/02/17 20:44; Start 04/01/17 at 21:00 Sertraline HCl (Zoloft) 50 mg DAILY PO Last administered on 04/02/17 08:00; Start 04/02/17 at 09:00 Active Scripts Active Reported Tylenol (Acetaminophen) 325 Mg Tablet 650 Mg PO PRN Q6HRS PRN Metoprolol Succinate ( Xl ) (Metoprolol Succinate) 50 Mg Tab.er.24h 50 Mg PO DAILY Synthroid (Levothyroxine Sodium) 25 Mcg Tablet 25 Mcg PO DAILY07 Synthroid (Levothyroxine Sodium) 200 Mcg Tablet 200 Mcg PO DAILY07 Neurontin (Gabapentin) 100 Mg Capsule 100 Mg PO BID Miralax (Polyethylene Glycol 3350) 119 Gm Powder 17 Gm PO DAILY Lisinopril-Hctz 20-12.5 Mg Tab (Lisinopril/Hydrochlorothiazide) 1 Each Tablet 1 Tab PO DAILY Lipitor (Atorvastatin Calcium) 40 Mg Tablet 40 Mg PO DAILY Levemir Flextouch (Insulin Detemir) 100 Unit/1 Ml Insuln.pen 30 Unit SQ BID Humalog Kwikpen (Insulin Lispro) 200 Unit/1 Ml Insuln.pen 15 Unit SQ TIDAC Colace (Docusate Sodium) 100 Mg Capsule 100 Mg PO BID Cipro (Ciprofloxacin Hcl) 250 Mg Tablet 250 Mg PO BID 5 Days Aspirin 325 Mg Tablet 325 Mg PO DAILY Aricept (Donepezil Hcl) 10 Mg Tablet 10 Mg PO QHS Diagnosis: Problems: (1) Anxiety disorder (2) Impulse control disorder (3) Major depressive disorder, recurrent episode (4) Bipolar 1 disorder, mixed, moderate KLAUDIA ESCAMILLA MD Apr 02, 2017 22:44
[2017-04-02] MEDS ORDERED: ENOX40DI SQ (23:54)
--- NOTE | 2017-04-02 23:56 | PN ---
DATE: 04/01/2017 This late entry of 04/01 covers elements not covered in my initial note. SUBJECTIVE: The patient has had no sexual behavior, which is what prompted her admission. Blood sugar was down to the [address] Castaneda has adjusted her insulin. REVIEW OF SYSTEMS: Ambulation impaired, in wheelchair. No CV, , pulmonary or eye system symptoms on review. MENTAL STATUS EXAM: Oriented to herself and situation. Speech is coherent, abstraction fair, computation impaired, language function intact and attention span short. Mood and affect appears improved. LABORATORY DATA: Reviewed. IMPRESSION: Unchanged from initial note. PLAN: Increase Zoloft to 50 mg a day. Continue rest unchanged, review drug contractions, risk/benefit ratio favors no further change at this time. MAN Azar ESCAMILLA MD DR: BILLY/kal JOB#: [id number] / [id number]
[2017-04-03] MEDS ORDERED: METH29OI TP
[2017-04-03] MEDS ORDERED: BUSP5TAB PO
[2017-04-03] MEDS ORDERED: OLAN5TAB9 PO
[2017-04-03] MEDS ORDERED: SERT50TA PO
[2017-04-03] MEDS ORDERED: SULF1TAB23 PO (00:03)
[2017-04-03] MEDS: LEVOTHYROXINE 100 MCG TABLET PO SCH (06:08)
[2017-04-03] MEDS: busPIRone 5 MG TABLET. PO SCH ×2 (06:09→12:13)
[2017-04-03 06:33] VITALS: BP 131/67
[2017-04-03] MEDS: INSULIN ASPART 300 UNITS/3 ML INSULN.PEN SQ SCH ×3 (07:30→12:14)
[2017-04-03] MEDS: DOCUSATE SODIUM 100 MG CAPSULE PO SCH (08:17)
[2017-04-03] MEDS: SERTRALINE 50 MG TABLET. PO SCH (08:17)
[2017-04-03] MEDS: ASPIRIN 325 MG TABLET PO SCH (08:18)
[2017-04-03] MEDS: GABAPENTIN 100 MG CAPSULE. PO SCH (08:18)
[2017-04-03] MEDS: LISINOPRIL 20 MG TABLET PO SCH (08:18)
[2017-04-03 08:21] VITALS: BP 131/67
[2017-04-03] MEDS: METOPROLOL SUCC 24HR ER 50 MG TAB.ER.24H. PO SCH (08:21)
[2017-04-03] MEDS: ENOXAPARIN 40 MG/0.4 ML DISP.SYRIN. SQ SCH (08:21)
[2017-04-03] MEDS: SMZ/TMP 800/160MG TABLET. PO SCH (08:21)
[2017-04-03] MEDS: hydroCHLOROthiazide 12.5 MG CAPSULE PO SCH (08:21)
[2017-04-03] MEDS: POLYETHYLENE GLYCOL 3350 17 GM PACKET. PO SCH (08:22)
[2017-04-03] MEDS: INSULIN DETEMIR 300 UNITS/3 ML INSULN.PEN. SQ SCH (08:27)
[2017-04-03] MEDS: ACETAMINOPHEN 325 MG TABLET PO PRN (10:32)
--- NOTE | 2017-04-03 18:36 | PDOC ---
Exam Claudio Demential Exam: Claudio Note: Please also refer to the separate dictated note~for this date of service dictated separately.~Patient seen individually. Discussed the patient with Nursing staff reviewed the chart.~Reviewed interim history and current functioning. Reviewed vital signs,~Labs/ Radiology~and current medications noted below. Continue current treatment with the changes noted in the dictated addendum note Assessment: Vital Signs: Vital Signs Date Time Temp Pulse Resp B/P (MAP) Pulse Ox O2 Delivery O2 Flow Rate FiO2 04/03/17 08:21 69 131/67 04/03/17 06:33 98.1 18 97 I&O Intake and Output 04/04/17 07:00 Intake Total 600 ml Balance 600 ml Intake Oral 600 ml # Bowel Movements 1 Labs: Laboratory Tests Test 04/02/17 19:02 04/03/17 07:12 04/03/17 11:56 Glucose (Fingerstick) 129 mg/dL (70-99) H 104 mg/dL (70-99) H 151 mg/dL (70-99) H Current Medications: Meds: Current Medications Donepezil HCl (Aricept) 10 mg QHS PO Last administered on 04/02/17 20:44; Start 03/23/17 at 21:00; Stop 04/03/17 at 15:36; Status DC Olanzapine (ZyPREXA ZYDIS) 2.5 mg PRN Q2HR PRN PO Psychosis Last administered on 03/26/17 15:09; Start 03/23/17 at 06:30; Stop 04/03/17 at 15:36; Status DC Acetaminophen (Tylenol) 650 mg PRN Q6HRS PRN PO PAIN / TEMP Last administered on 04/03/17 10:32; Start 03/23/17 at 07:00; Stop 04/03/17 at 15:36; Status DC Aspirin (Isabel Aspirin) 325 mg DAILY PO Last administered on 04/03/17 08:18; Start 03/23/17 at 09:00; Stop 04/03/17 at 15:36; Status DC Ciprofloxacin (Cipro) 250 mg BID PO Last administered on 03/27/17 20:02; Start 03/23/17 at 09:00; Stop 03/28/17 at 08:59; Status DC Docusate Sodium (Colace) 100 mg BID PO Last administered on 04/03/17 08:17; Start 03/23/17 at 09:00; Stop 04/03/17 at 15:36; Status DC Gabapentin (Neurontin) 100 mg BID PO Last administered on 04/03/17 08:18; Start 03/23/17 at 09:00; Stop 04/03/17 at 15:36; Status DC Insulin Detemir (Levemir) 30 units BID SQ Last administered on 04/01/17 09:53; Start 03/23/17 at 09:00; Stop 04/01/17 at 13:47; Status DC Levothyroxine Sodium (Synthroid) 25 mcg DAILY07 PO Last administered on 08:49; Start 03/23/17 at 07:30; Stop 03/23/17 at 16:43; Status DC Metoprolol Succinate (Toprol Xl) 50 mg DAILY PO Last administered on 04/03/17 08:21; Start 03/23/17 at 09:00; Stop 04/03/17 at 15:36; Status DC Polyethylene Glycol (miraLAX) 17 gm DAILY PO Last administered on 04/03/17 08: 22; Start 03/23/17 at 09:00; Stop 04/03/17 at 15:36; Status DC Atorvastatin Calcium (Lipitor) 40 mg QHS PO Last administered on 04/02/17 20:45 ; Start 03/23/17 at 21:00; Stop 04/03/17 at 15:36; Status DC Insulin Aspart (NovoLOG) 15 units TIDAC SQ Last administered on 03/26/17 12:09 ; Start 03/23/17 at 16:30; Stop 03/26/17 at 14:22; Status DC Levothyroxine Sodium (Synthroid) 200 mcg DAILY07 PO Last administered on 06:08; Start 03/23/17 at 09:00; Stop 04/03/17 at 15:36; Status DC Lisinopril (Prinivil) 20 mg DAILY PO Last administered on 04/03/17 08:18; Start 03/23/17 at 09:00; Stop 04/03/17 at 15:36; Status DC Enoxaparin Sodium (Lovenox) 30 mg Q24H SQ Last administered on 03/23/17 08:52 ; Start 03/23/17 at 09:00; Stop 03/23/17 at 09:31; Status DC Hydrochlorothiazide (Microzide) 12.5 mg DAILY PO Last administered on 04/03/17 08:21; Start 03/23/17 at 09:00; Stop 04/03/17 at 15:36; Status DC Enoxaparin Sodium (Lovenox) 40 mg Q24H SQ Last administered on 04/03/17 08:21; Start 03/24/17 at 09:00; Stop 04/03/17 at 15:36; Status DC Glucose (Insta-Glucose) 15 gm STK-MED ONCE .ROUTE Last administered on 16:35; Start 03/24/17 at 16:35; Stop 03/24/17 at 16:36; Status DC Glucose (Insta-Glucose) 15 gm STK-MED ONCE .ROUTE Last administered on 16:59; Start 03/24/17 at 16:55; Stop 03/24/17 at 16:56; Status DC Multi-Ingredient Ointment (Analgesic [place]) 1 judith PRN QID PRN TP MUSCLE PAIN; Start 03/24/17 at 18:30; Stop 04/03/17 at 15:36; Status DC Insulin Aspart (NovoLOG) 15 units TIDAC SQ Last administered on 04/03/17 12:14 ; Start 03/26/17 at 14:22; Stop 04/03/17 at 15:36; Status DC Buspirone HCl (Buspar) 5 mg [id number] PO Last administered on 03/28/17 09:32; Start 03/27/17 at 09:00; Stop 03/28/17 at 13:11; Status DC Buspirone HCl (Buspar) 5 mg TID PO Last administered on 03/31/17 08:31; Start 03/28/17 at 14:00; Stop 03/31/17 at 13:17; Status DC Sertraline HCl (Zoloft) 25 mg DAILY PO Last administered on 04/01/17 07:47; Start 03/29/17 at 09:00; Stop 04/01/17 at 18:52; Status DC Trimethoprim/ Sulfamethoxazole (Bactrim Ds) 1 tab BID PO Last administered on 08:21; Start 03/29/17 at 21:00; Stop 04/03/17 at 15:36; Status DC Buspirone HCl (Buspar) 5 mg [id number] PO Last administered on 04/03/17 12:13; Start 03/31/17 at 18:00; Stop 04/03/17 at 15:36; Status DC Insulin Detemir (Levemir) 20 units BID SQ Last administered on 04/03/17 08:27; Start 04/01/17 at 21:00; Stop 04/03/17 at 15:36; Status DC Sertraline HCl (Zoloft) 50 mg DAILY PO Last administered on 04/03/17 08:17; Start 04/02/17 at 09:00; Stop 04/03/17 at 15:36; Status DC Active Scripts Active Reported Bactrim 400-80 Mg Tablet (Sulfamethoxazole/Trimethoprim) 1 Each Tablet 1 Tab PO BID 1 Days Buspirone Hcl 5 Mg Tablet 5 Mg PO [id number] Zoloft (Sertraline Hcl) 50 Mg Tablet 50 Mg PO DAILY Olanzapine 5 Mg Tablet 2.5 Mg PO PRN Q2HR PRN Analgesic [place] (Methyl Salicylate/Menthol) 28 Gm Oint...g. 1 Gm TP PRN QID PRN Lovenox (Enoxaparin Sodium) 40 Mg/0.4 Ml Disp.syrin 40 Mg SQ DAILY Tylenol (Acetaminophen) 325 Mg Tablet 650 Mg PO PRN Q6HRS PRN Metoprolol Succinate ( Xl ) (Metoprolol Succinate) 50 Mg Tab.er.24h 50 Mg PO DAILY Synthroid (Levothyroxine Sodium) 25 Mcg Tablet 25 Mcg PO DAILY07 Synthroid (Levothyroxine Sodium) 200 Mcg Tablet 200 Mcg PO DAILY07 Neurontin (Gabapentin) 100 Mg Capsule 100 Mg PO BID Miralax (Polyethylene Glycol 3350) 119 Gm Powder 17 Gm PO DAILY Lisinopril-Hctz 20-12.5 Mg Tab (Lisinopril/Hydrochlorothiazide) 1 Each Tablet 1 Tab PO DAILY Lipitor (Atorvastatin Calcium) 40 Mg Tablet 40 Mg PO DAILY Levemir Flextouch (Insulin Detemir) 100 Unit/1 Ml Insuln.pen 20 Unit SQ BID Humalog Kwikpen (Insulin Lispro) 200 Unit/1 Ml Insuln.pen 15 Unit SQ TIDAC Colace (Docusate Sodium) 100 Mg Capsule 100 Mg PO BID Aspirin 325 Mg Tablet 325 Mg PO DAILY Aricept (Donepezil Hcl) 10 Mg Tablet 10 Mg PO QHS Diagnosis: Problems: (1) Bipolar 1 disorder, mixed, moderate (2) Mild cognitive disorder (3) Major depressive disorder, recurrent episode (4) Impulse control disorder (5) Anxiety disorder KLAUDIA ESCAMILLA MD Apr 03, 2017 18:36
--- NOTE | 2017-04-04 01:29 | PN ---
DATE: 04/02/2017 This is a late entry for 04/02/2017 covers elements not covered in my initial note of 04/02/2017. SUBJECTIVE: I met with the patient in the evening of 04/02/2017. The patient slept 5 hours previous evening, was calm, compliant. No sexually inappropriate behaviors noted. REVIEW OF SYSTEMS: Ambulation impaired, in wheelchair. No CV, , pulmonary, eye system symptoms on review. MENTAL STATUS EXAM: Reasonably oriented. Speech is coherent, abstraction fair, computation impaired, language function intact. Mood and affect is improved. IMPRESSION: Unchanged from initial note. PLAN: Continue current psychotropics. Transition to home to outpatient treatment starting 04/03/2017. Reviewed drug interactions. KLAUDIA ESCAMILLA MD DR: BILLY/kal JOB#: [id number] / [id number]
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
== END 2017-04-03 15:36 | disposition home health service (06) | DRG 884 ==
LOC: GEROPSY 06:30 → EDBD 06:30
PROVIDERS: ADMIT Psychiatry & Neurology Psychiatry; ATTEND Psychiatry & Neurology Psychiatry
DX: F01.50 Vascular dementia, unspecified severity, without behavioral disturbance, psychotic disturbance, mood disturbance, and anxiety (principal); G62.9 Polyneuropathy, unspecified; R53.2 Functional quadriplegia; E44.1 Mild protein-calorie malnutrition; F31.62 Bipolar disorder, current episode mixed, moderate; E11.40 Type 2 diabetes mellitus with diabetic neuropathy, unspecified; F22 Delusional disorders; E03.9 Hypothyroidism, unspecified; E78.5 Hyperlipidemia, unspecified; F09 Unspecified mental disorder due to known physiological condition; F41.9 Anxiety disorder, unspecified; F63.9 Impulse disorder, unspecified; I10 Essential (primary) hypertension; I25.10 Atherosclerotic heart disease of native coronary artery without angina pectoris; M19.90 Unspecified osteoarthritis, unspecified site; Z68.37 Body mass index [BMI] 37.0-37.9, adult; M79.606 Pain in leg, unspecified; K59.09 Other constipation; Z86.73 Personal history of transient ischemic attack (TIA), and cerebral infarction without residual deficits; Z87.891 Personal history of nicotine dependence
CPT/HCPCS: 36415; 70450; 80053; 80061; 81001; 82306; 82607; 82947; 83036; 83540; 83550; 83735; 84436; 84443; 84480; 85025; 85610; 86592; 86593; 87086; 87186; J1650; J1815